=== PATIENT | male | born 1960 | race Caucasian/White ===

== ENCOUNTER 2018-09-24 09:50 | Inpatient (IN) | payer OTHER ==
[~2018-09-24] VITALS: Ht 180.3 cm; Wt 68.9 kg
--- NOTE | 2018-09-24 14:00 | NUR ---
PT ARRIVED TO ROOM 130 WITH THE LOW HEEL BUILDER AND FLOAT RN. PT ABLE TO TRANSFER HIMSELF FROM THE STRETCHER TO THE BED. PT HAS MINIMAL SHAKINESS NOTED. PT ARRIVED ON 15MLS/HR CARDIZEM GTT. WILL CONTINUE TO CLOSELY MONTIOR.
--- NOTE | 2018-09-24 16:00 | NUR ---
PT ASSESSMENT COMPELTED. PT BREATH SOUNDS CLEAR. BOWEL TONES ACTIVE. NO SKIN ISSUES NOTED AT THIS TIME. PT IS DIRTY, WILL ENCOURAGE A SHOWER ONCE HIS HEART RATE IS BETTER CONTROLLED. PT IS AGREEABLE TO PLAN OF CARE. PER PT HE IS A DAILY SMOKER. NICOTINE PATCH ON LEFT SHOULDER. PT REPORTS HE DRINKS BEER DAILY AND OCCASIONALLY HAS WHISKEY,VODAK, OR OTHER ALCOHOL. PT SMOKES MARIJUANA DAILY. PT IS ALERT AND ORIENTED AT THIS TIME AND AGREEABLE TO PLAN OF CARE. WILL CONTINUE TO CLOSELY MONITOR.
--- NOTE | 2018-09-24 17:00 | NUR ---
CARDIZEM GTT TITRATED DOWN TO 10MLS/HR. PT HR IN THE 80'S.
--- NOTE | 2018-09-24 17:15 | NUR ---
TITRATED CARDIZEM GTT DOWN TO 5MLS/HR. HR REMAINS IN THE 80'S.
--- NOTE | 2018-09-24 17:30 | NUR ---
PT HEART RATE IN THE 60'S. TURNED CARDIZEM GTT OFF AT THIS TIME. WILL CONTINUE TO CLOSELY MONITOR.
--- NOTE | 2018-09-24 18:11 | NUR ---
PT RESTING IN BED. ECHO COMPLETED. PT HAS BEEN APPROPRIATE SINCE ADMISSION. DINNER FINISHED. PT ATE 100% OF HIS MEAL. MAGNESIUM INFUSING AT THIS TIME. CARDIZEM GTT REMAINS TURNED OFF. WILL CONTINUE TO CLOSELY MONITOR.
--- NOTE | 2018-09-24 19:51 | NUR ---
REPORT RECEIVED, PT RESTING IN BED, AWAKE, ALERT, PLEASANT, HR 81, BP 113/66, O2 SAT 94% ON RA, RR 22, NO REQUESTS AT THIS TIME, PT EDUCATED ON USE OF CALL LIGHT, PT VERBALIZED UNDERSTANDING, SAFETY, AND FALL PRECAUTION EDUCATION PROVIDED. CALL LIGHT WITHIN REACH.
--- NOTE | 2018-09-24 20:30 | NUR ---
UPDATED DR. ARIZA ABOUT PATIENT'S NEW LAB RESULTS. NO NEW ORDERS REGARDING LABS. ALSO NOTIFIED MD THAT PATIENT STATED TO RN THAT HE HAS NO INTEREST IN QUITTING DRINKING. INQUIRED ABOUT PATIENT RECEIVING BEER WHILE HOSPITALIZED. STATES THAT IF PATIENT BECOMES BELIGERENT AND REQUESTS BEER, IT IS OKAY TO GIVE IT TO HIM, BUT AT THIS TIME DOES NOT WISH PATIENT TO HAVE ALCOHOL DUE TO SCHEDULED AND PRN VALIUM AND LIBRIUM.
--- NOTE | 2018-09-24 20:46 | NUR ---
IN ROOM TO ADMIN SCHEDULED MEDS, PT TOLERATED PO MEDS WELL. HR 81, RYTHM A-FLUTTER, BP 122/77, O2 SAT 98% ON RA, RR 20, PT DENIES ANY PAIN OR DISCOMFORT AT THIS TIME, STATES THAT HE FEELS MUCH BETTER THAN PREVIOUSLY, LS CLEAR, DIMINISHED BASES BILATERALLY, HEART SOUNDS REGULAR, PULSES STRONG, REGULAR, BT ACTIVE, ABD NONTENDER, NO DISTENTION. PERRLA, PT HAS MODERATE TREMOR NOTED IN HANDS AND ARMS, AOX4, IV FLUIDS INFUSING PER EMAR WNL, PT DENIES ANY NEEDS AT THIS TIME, CALL LIGHT WITHIN REACH, FALL PRECAUTIONS IN PLACE.
--- NOTE | 2018-09-24 21:25 | NUR ---
PT ASSISTED FROM BED TO BATHROOM, PT AMBULATED WELL WITH 1 PERSON SBA, PT DENIED ANY LIGHT HEADEDNESS OR DIZZINESS, PT HAD MEDIUM SIZED LOOSE LIQUID STOOL. PT BACK TO BED, VSS, PT STATES "I NEED TO CATCH MY WIND", STATES SOB WITH WALKING IS CHRONIC "USUALLY HAPPENS IN THE MORNING" VITALS REMAIN STABLE, O2 SAT 96% ON RA, RR 26, DENIES FURTHER NEEDS AT THIS TIME, CALL LIGHT WITHIN REACH, FALL PRECAUTIONS IN PLACE.
--- NOTE | 2018-09-24 21:43 | NUR ---
IN ROOM TO ADMIN SCHEDULED VALIUM, 10 MG, PT TOLERATED WELL, EDUCATION REGARDING MEDICATION PROVIDED, PT'S O2 SAT NOTED TO BE 91%, PT PLACED ON 2LNC, TOLERATING WELL, O2 SAT TO 95% NOW RR 23, NO C/O SOB/CP, PT RESTING IN BED, NO FURTHER REQUESTS AT THIS TIME, IV FLUIDS INFUSING PER EMAR WNL, CALL LIGHT WITHIN REACH, FALL PRECAUTIONS IN PLACE.
--- NOTE | 2018-09-24 22:29 | NUR ---
PT RESTING IN BED, O2 SAT 98%, ON 1LNC, RR 24, NO C/O SOB, BREATHS EVEN, UNLABORED, VSS, HR 84, NO REQUESTS AT THIS TIME, CALL LIGHT WITHIN REACH, FALL PRECAUTIONS IN PLACE.
--- NOTE | 2018-09-24 23:45 | NUR ---
IN ROOM FOR SHIFT ASSESSMENT, PT AOX4, APPROPRIATE, PT STATES HE IS TIRED, CIWA 5, PT NOTED TO HAVE MODERATE TREMOR WITH ARMS EXTENDED, NO C/O NAUSEA OR CAZARES, PT NOTED TO BE MILDLY ANXIOUS, PT GIVEN PRN 10 MG PO LIBRIUM PER EMAR, TOLERATED WELL. WILL CONTINUE TO MONITOR, LS CLEAR, HEART SOUNDS REGULAR, VSS, HR 76, BP 125/64, O2 SAT 95% ON 1LNC, RR 26, PULSES STRONG, EQUAL, HEART RYTHM SHOWS AFIB/FLUTTER, NO C/O SOB/CP, IV FLUIDS INFUSING PER EMAR WNL, NO REQUESTS AT THIS TIME, CALL LIGHT WITHIN REACH. FALL PRECAUTIONS IN PLACE.
--- NOTE | 2018-09-25 00:11 | NUR ---
PT RESTING IN BED, EYES CLOSED, BREATHS EVEN, UNLABORED, NO REQUESTS AT THIS TIME, VSS, HR 78, O2 SAT 95% ON 1LNC, RR 23, CALL LIGHT WITHIN REACH. FALL PRECAUTIONS IN PLACE.
--- NOTE | 2018-09-25 00:33 | NUR ---
PT NOTED TO BE IN SINUS RYTHM ON TELE, HR 79, REGULAR, IN 0.19, QRS 0.08, RR 0.77, QT 0.41, PT RESTING IN BED, EYES CLOSED, BREATHS EVEN, UNLABORED, NO REQUESTS AT THIS TIME. O2 SAT 99% ON RA, RR 21, CALL LIGHT WITHIN REACH.
--- NOTE | 2018-09-25 02:18 | NUR ---
IN ROOM TO ADMIN SCHEDULED MEDS, PT TOLERATED WELL. PT AOX4, APPROPRIATE, PT DROWSY FROM REST, ON 1LNC, DENIES SOB, O2 SAT 96%, RR23, HR 86, MODERATE TREMOR NOTED WITH PT'S ARMS EXTENDED, CIWA 4, IV FLUIDS INFUSING PER EMAR WNL, NO REQUESTS AT THIS TIME, PT DENIES NAUSEA, CMS INTACT, DENIES ANY AUDITORY OR SENSORY ABNORMALITIES. FALL PRECAUTIONS IN PLACE.
--- NOTE | 2018-09-25 03:31 | NUR ---
PT RESTING IN BED, EYES CLOSED, BREATHS EVEN, UNLABORED, ON 1LNC, O2 SAT 95%, RR 18, NO REQUESTS AT THIS TIME, CALL LIGHT WITHIN REACH, FALL PRECAUTIONS IN PLACE.
--- NOTE | 2018-09-25 04:24 | NUR ---
PT RESTING IN BED, AOX4, DROWSY FROM SLEEP STATING "I HAVEN'T BEEN SLEEPING WELL" PT HAS MILD TREMOR NOTED IN HANDS, DENIES NAUSEA, DENIES PAIN, DENIES CAZARES, CMS INTACT, NO LOSS OF SENSATION, NO C/O ITCHING. ON 1LNC, O2 SAT 98%, RR 22, DENIES SOB, LS PLEURAL RUB NOTED IN RIGHT LOWER LOBES, LS CLEAR OTHERWISE, PT ENCOURAGED TO COUGH/ DEEP BREATH. HEART SOUNDS REGULAR, CURRENTLY IN SINUS RYTHM, PULSES EQUAL, STRONG, REGULAR. BT ACTIVE, CIWA 3, GIVEN PRN LIBRIUM PER EMAR. PT DENIES NEEDS AT THIS TIME. CALL LIGHT WITHIN REACH, FALL PRECAUTIONS IN PLACE.
--- NOTE | 2018-09-25 06:00 | NUR ---
PT RESTING IN BED, SCHEDULED MEDS GIVEN, NO REQUESTS AT THIS TIME. CIWA 3, IV FLUIDS INFUSING PER EMAR. CALL LIGHT WITHIN REACH. AOX4.
--- NOTE | 2018-09-25 07:30 | NUR ---
REPORT RECIEVED FROM OFFSET PRESSMAN RNS. PT IN BED WITH EYES OPEN. VSS. RR 19. PT INSTRUCTED TO USE CALL LIGHT. VERBALIZED UNDERSTADNING. BREAKFAST ORDERED.
--- NOTE | 2018-09-25 07:35 | NUR ---
REPORT GIVEN TO DAY SHIFT RN'S, QUESTIONS ANSWERED, PT RESTING IN BED, EYES CLOSED, BREATHS EVEN, UNLABORED, HR 79, O2 SAT 97%, ON 1LNC, CALL LIGHT WITHIN REACH, FALL PRECAUTIONS IN PLACE.
--- NOTE | 2018-09-25 08:07 | NUR ---
IN FOR MORNING ASSESSMENT. PT IN BED, AAO X3. VISIBLE TREMORS NOTED, PT IS CALM, LYING BACK. DARION,LLL,RUL CLEAR. RLL WITH NO AUDIBLE LUNG SOUNDS. 02 SAT 97% ON RA. HEART SOUND REGULAR, HR BETWEEN 80-95, SINUS RHYTHM. BLOOD PRESSURE WNL. CIWA OF 4. RIGHT IV FLUSHED WITH 10ML AND PATENT. MEDICAITONS ADMINISTERED.
--- NOTE | 2018-09-25 08:55 | NUR ---
NOTIFIED BY NURSE OF PT INCREASING AGITATION. CIWA OF 8 NOTED. 5 MG IV VALUM ADMINISTERED.
--- NOTE | 2018-09-25 09:05 | NUR ---
CIWA OF 8. 5MG VALUM ADMINISTERED IV. PT EATING BREAKFAST.
--- NOTE | 2018-09-25 09:24 | NUR ---
PT CONTINUES TO BE AGITATED WITH A CIWA OF 8. VISIBLE TREMORS, PT FIGITING WITH CORDS, SITITNG UP, MILD PERSPERATION. SCHEDULE PO VALUM ADMINISTERED.
--- NOTE | 2018-09-25 09:48 | NUR ---
CIWA OF 8. PT REQUESTING TO LEAVE TO SMOKE. SITTING UP WITH VISIBLE TREMORS. FIGITING WITH CORDS. PO LIBRUIM ADMINISTERED. WILL CONT TO MONITOR.
--- NOTE | 2018-09-25 10:30 | NUR ---
ROUNDED WITH DR ARIZA. PT AAO IN BED, WITH SOME VISIBLE AGITATION. REQUESTINGA CIGARETTE. THIS RN LOZENGE REQUESTED. QUESTIONS AND CONCERNS ADRESSED. PT ABLE TO ANSWER QUESTIONS BUT VEERS OFF TOPIC OFTEN. NEEDS REFOCUSED. PLAN OF CARE DISCUSSED.
--- NOTE | 2018-09-25 10:34 | NUR ---
MED REC COMPLETE. PATIENT TAKES NO HOME MEDICATIONS.
--- NOTE | 2018-09-25 11:22 | NUR ---
DR ARIZA UPDATED ON PT INCREASE IN AGITATION AND CIWA SCORE OF 15. NEW ORDERS RECEIVED TO ADMINSTER PRN VALUM IV 10MG. IF IN 15 MIN PT IS STILL AGITATED ADMINISTER ANOTHER DOSE OF VALUM 10MG IV. PT UNRESPONSIVE TO FIRST VALUM DOSE. @ 1140 ANOTHER 10MG VALUM IV ADMINISTERED. PT SITTING UP IN BED WITH VISIBLE TREMORS, RR 30, DECREASE IN DEXTERITY, FIGITING WITH CORDS AND BLANKETS. DENIES HEADACHE. STILL FOLLOWS COMMANDS, REPORTS THAT HE WANTS TO LESAVE TO SMOKE A CIGARETTE. OFFERED LOZENGE, PT REFUSED STATING "ITS NOT THE SAME".
--- NOTE | 2018-09-25 13:11 | EKG ---
[facility] [address] [place], [place] [address] Signed Atrial flutter with 2:[address] \T\ T wave abnormality, consider inferior ischemia Abnormal ECG No previous ECGs available Confirmed by LAILA ARIZA MD [id number]) on 09/25/2018 1:11:26 PM Electronically Signed By: LAILA ARIZA MD 09/25/18 1311 PATIENT NAME: MARTALOVE JOSIE Electrocardiogram DATE OF : 62 PHYSICIAN: LAILA ARIZA MD REPORT #: [id number] REPORT IS CONFIDENTIAL AND NOT TO BE RELEASED WITHOUT AUTHORIZATION
--- NOTE | 2018-09-25 13:12 | NUR ---
DR ARIZA TO FLOOR. UPDATED ON PT INCREASE IN CIWA. NEW ORDERS PLACED. CEREBYX ADMINISTERED PER ORDER.
--- NOTE | 2018-09-25 14:37 | NUR ---
PT WITH CIWA OF 18. 10MG PRN IV VALUM ADMINISTERED.
--- NOTE | 2018-09-25 15:05 | NUR ---
CASE MANAGEMENT ASSESSMENT COMPLETED ON URIAH. PT IS VERY UNKEPT WITH STRONG ODOR. PT SPEAKING LOUDLY AND AT TIMES DOES NOT MAKE SENSE. PT BELIEVES HE HAS BEEN HAVING SEIZURES SINCE APRIL. LIVES ALONE IN A MOTOR HOME, WHICH HAS BEEN PARKED X 4 YEARS A [employer]. 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 PT PLANS ON DC TO MOTOR HOME WITH HELP FROM FRIEND WHEN DISCHARGED.
--- NOTE | 2018-09-25 15:32 | NUR ---
PT TRANSFERED TO ROOM WHERE NURSES CAN VISUALIZE PT BETTER. DR ARIZA TO FLOOR TO ASSESS PT. NEW ORDERS RECEIVED. PT AGITATED AND TRYING TO GET OUT OF BED. WORRIED ABOUT DOG. FRIEND RADHA CALLED ABOUT DOG. PT NOTIFIED AND SEEMS TO BE CALMING DOWN KNOWING HIS DOG IS OK. MEDICATION ADMINISTERED, PT BACK IN BED, REQUESTING TO CALL JOSE. THIS NURSE DIALED NUMBER PT IS UNABLE TO. PT TALKED TO FRIEND ON PHONE.
--- NOTE | 2018-09-25 18:10 | NUR ---
DINNER AT BEDSIDE, 10MG IV VALUM AND PO LIBRIUM ADMINISTERED FOR CIWA OF 4. FAMILY FRIENDS AT BEDSIDE ASSISTIN GPT WITH DINNER. WARM BLANKET PROVIDED.
--- NOTE | 2018-09-25 18:59 | NUR ---
FINISHED 50% DINNER. CIWA OF 4. PRN PO VALUM ADMINISTERED. PT REPORTING HE IS GOING TO "UNHOOK" AND GO SMOKE. NICOTINE LOZENGE GIVEN. PT IN BED WATCHING TV.
--- NOTE | 2018-09-25 22:15 | NUR ---
PATIENT IS RESTLESS, AGITATED, ATTEMPTING TO GET OUT OF BED, STATING "I NEED TO GO TO THE BATHROOM." EDUCATED PATIENT ABOUT MEDICATIONS HE IS ON AND THAT HE CANNOT WALK TO BATHROOM SAFELY, TOLD PATIENT THAT HE CAN USE THE URINAL. THIS CAUSED PATIENT TO BECOME MORE AGITATED AND RESTLESS. SCHEDULED PHENOBARBITAL GIVEN WELL PRN LIBRIUM AND SCHEDULED PO VALIUM. RN REMAINS AT BEDSIDE TO MAINTAIN SAFETY OF PATIENT.
--- NOTE | 2018-09-25 23:00 | NUR ---
PATIENT AGITATED AND RESTLESS, ATTEMPTING TO GET OUT OF BED, IS VERBALLY ABUSIVE TOWARDS STAFF, PRN IV VALIUM GIVEN.
--- NOTE | 2018-09-25 23:40 | NUR ---
PATIENT IS ATTEMPTING TO GET OUT OF BED, RESTLESS, AGITATED, VERBALLY ABUSIVE TOWARDS STAFF. PRN IV VALIUM GIVEN.
--- NOTE | 2018-09-25 23:40 | NUR ---
PATIENT REMAINS AGITATED AND STANDING AT BEDSIDE WITH 3 STAFF ATTEMPTING TO GO TO BATHROOM. 10 MG IV VALIUM GIVEN.
--- NOTE | 2018-09-26 00:40 | NUR ---
NOTIFIED DR. ARIZA THAT PATIENT HAS REMAINED AGITATED AND ATTEMPTING TO GET OUT OF BED DESPITE ALL PRN ORDERS ADMINISTERED WELL WELL X1 DOSE OF 10 MG IV VALIUM. ORDERED FOR X1 LIBRIUM 10 MG PO AND FOR X1 130 MG IV PHENOBARBITAL.
--- NOTE | 2018-09-26 01:00 | NUR ---
PATIENT GIVEN X1 DOSE OF 130 MG IV PHENOBARBITAL AND X1 10 MG PO LIBRIUM. PATIENT ABLE TO TAKE PILLS WELL. REMAINS AGITATED.
--- NOTE | 2018-09-26 02:24 | NUR ---
PATIENT APPEARS TO BE IN SVT WITH HEART RATE >130, BP SBALE WITH PRESSURE OF 128/90 (99), ASLEEP, BREATHING IS EVEN AND UNLABORED. CALLED RT FOR ECG.
--- NOTE | 2018-09-26 02:27 | NUR ---
NOTIFIED DR. ARIZA REGARDING PATIENT'S ELEVATED HEART RATE AND THAT ECG WAS DONE. DR. ARIZA ORDERS FOR CARDIZEM GTT TO BE STARTED AGAIN.
--- NOTE | 2018-09-26 02:30 | NUR ---
PATIENT STARTED ON CARDIZEM GTT AT 5 MG/HR DUE TO ELEVATED HEART RATE. PATIENT IS RESTFUL WITH EYES CLOSED, RR IS EVEN AND UNLABORED, SPO2 94% ON ROOM AIR.
--- NOTE | 2018-09-26 04:30 | NUR ---
PATIENT HAS BEEN AGITATED AND ANXIOUS, ATTEMPTING TO GET OUT OF BED, PULLING AT CHORDS AND LINES. PRN VALIUM GIVEN. RN REMAINS AT BEDSIDE
--- NOTE | 2018-09-26 06:00 | NUR ---
PATIENT IS RESTFUL WITH EYES CLOSED, BREATHING IS EVEN AND UNLABORED. HEART RATE IS BETWEEN 100 AND 110, CARDIZEM GTT AT 15 MG/HR.
--- NOTE | 2018-09-26 06:30 | NUR ---
PATIENT IS RESISTANT TO RN CARE AND IS ATTEMPTING TO GET OUT OF BED. IS VERBALLY AGGRESIVE TOWARDS STAFF. SCHEDULED PHENOBARBITAL GIVEN.
--- NOTE | 2018-09-26 07:50 | EKG ---
[facility] [address] [place] [address] \T\ T wave abnormality, consider inferior ischemia ST \T\ T wave abnormality, consider anterolateral ischemia Abnormal ECG When compared with ECG of 24-SEP-2018 10:29, Current undetermined rhythm precludes rhythm comparison, needs review ST no longer elevated in Inferior leads ST no longer elevated in Anterior leads T wave inversion now evident in Anterolateral leads Confirmed by LAILA ARIZA MD ([id number]) on 09/26/2018 7:50:03 AM Electronically Signed By: LAILA ARIZA MD 09/26/18 0750 PATIENT NAME: LOVE LOZANO Electrocardiogram DATE OF : 62 PHYSICIAN: LAILA ARIZA MD REPORT #: [id number] REPORT IS CONFIDENTIAL AND NOT TO BE RELEASED WITHOUT AUTHORIZATION
--- NOTE | 2018-09-26 08:00 | NUR ---
PT APPEARS TO BE SLEEPING. CHEST RISE AND FALL. DR ARIZA IN UNIT TO CHECK IN ON PT
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
--- NOTE | 2018-09-26 09:16 | NUR ---
DILT GTT TURNED DOWN TO 10 MG/HR
--- NOTE | 2018-09-26 09:30 | NUR ---
PT MEDICATED WITH IV VALIUM PRIOR TO BED CHANGE. COMPLETE BED CHANGE, ATTENDS CHANGED. PT CALM DURING EVENT
--- NOTE | 2018-09-26 10:48 | NUR ---
PT BECOMING MORE AGGITATED. MEDICATED WITHIV VALIUM. FRIEND IN TO SEE PT
--- NOTE | 2018-09-26 11:56 | NUR ---
IV DILT GTT TITRATED DOWN TO 7.5 MG/HR
--- NOTE | 2018-09-26 12:20 | NUR ---
PT UP TO BEDSIDE COMMODE FOR BOWEL MOVEMENT. PT UNABLE TO STAND ON OWN. HEAVY 2 PERSON ASSIST. PT BEGINNING TO BECOME AGRESSIVE WITH STAFF. MEDICATED WITH IV VALIUM
--- NOTE | 2018-09-26 12:55 | NUR ---
PT APPEARS TO BE SLEEPING. MONITOR IN PLACE. CHEST RISE AND FALL VISIBLE.
--- NOTE | 2018-09-26 12:57 | NUR ---
PT FAMILY MEMBER REQUESTED THAT LUNCH BE ORDERED FOR PT. PT REMIANS MUCH TOO DROWSY FOR ORAL INTAKE. WILL ORDER FOOD WHEN APPROPRIATE
--- NOTE | 2018-09-26 13:11 | NUR ---
DR ARIZA UPDATED ON INABLITY TO GIVEN ORAL MEDICATIONS. ASKED IF A BANANA BAG OF IV VITAMINS WOULD BE APPROPRIATE. DR ARIZA DECLINED THAT ORDER AT THIS TIME. IV DILT DRIP CONTINUES AT 5 MG/HR. VITALS STABLE
--- NOTE | 2018-09-26 14:27 | NUR ---
PT CONTINUES TO REST. NO CAHNGES IN STATUS. VITALS STABLE
--- NOTE | 2018-09-26 14:57 | NUR ---
PT ATTENDS CHANGED AFTER SATURATING WITH URINE. PT AWAKE AND SPEAKING TO STAFF. PT REMAINS VERY CONFUSED WITH FLIGHT OF IDEAS. PT ABLE TO SWALLOW ORAL MEDICATIONS IN PUDDING. PT ABLE TO TOLERATE SMALL SIPS OF WATER WITH OUT THE STRAW
--- NOTE | 2018-09-26 15:03 | NUR ---
WHILE PT AWAKE AND MORE AGGITATED. DRIP NEEDED TITRATED BACK UP TO 7.5 MG/HR
--- NOTE | 2018-09-26 15:21 | NUR ---
ATTEMPTED TO FEED PT LUNCH. PT ABLE TO WAKE AND FOLLOW COMMANDS. THOUGH IS VERY DROWSY AND NOT ABLE TO EAT WELL. WILL TRY AGAIN LATER
--- NOTE | 2018-09-26 16:30 | NUR ---
PTS BROTHER IN ROOM TO VISIT. PT DID RECOGNIZE BROTHER ON ENTRY INTO ROOM. DILTIAZEM DRIP TURNED DOWN TO 5 MG/HR
--- NOTE | 2018-09-26 16:55 | NUR ---
PT ATTEMPTING TO TALK HIS BROTHER INTO TAKING HIM HOME. PT MUCH MORE INTERACTIVE WITH STAFF AND FAMILY.
--- NOTE | 2018-09-26 17:18 | NUR ---
PT IN DIRECT LINE OF SIGHT OF NURSES STATION. PT ATTEMPTING TO GET OUT OF BED, BED ALARM ON. REDIRECTING PT FREQUENTLY.
--- NOTE | 2018-09-26 17:48 | NUR ---
DR ARIZA UPDATED ON PTS STATUS. PT HAS INCREASED WORK OF BREATHING, REPORTS "I CAN'T BREATHE" WHEN HE IS COHERENT, AND TACHYNIC. ORDER FOR EXTRA DOSE OF PO LIBRIUM. PT ABLE TO SWALLOW THIS. NO FURTHER ORDERS. PT IS EXTREMELY AGGITATED, ATTEMPTINOG TO GET OUT OF BED TO GET [facility]IG[facility]. PT IN DIRECT LINE OF SIGHT WITH BED ALARM ON.
--- NOTE | 2018-09-26 18:06 | NUR ---
PHARMACIST IN UNIT TO DISCUSS MEDICATION DOSES. DUE TO LIMITED STOCK OF VALIUM, DR ARIZA CONTACTED FOR CHANGE IN MEDICATION TO ATIVAN. ORDER FOR 2 MG IV Q1HR PRN
--- NOTE | 2018-09-26 18:11 | NUR ---
WITH INCREASED AGGITATION, PTS HEART RATE HAS TRENDED UP. NOW 121. DILT GTT TITRATED UP TO 7.5 MG/HR
--- NOTE | 2018-09-26 18:42 | NUR ---
PT IN BED. CONTINUES TO FIGHT TO TRY TO GET OUT OF BED. PT APPEARS TO BE EXTREMELY CONFUSED. PT UNABLE TO PULL HIMSELF UP OUT OF THE BED AT THIS TIME. REMAINS IN DIRECT LINE OF SIGHT. BED ALARM ON
--- NOTE | 2018-09-26 19:10 | NUR ---
BEDSIDE SHIFT REPORT RECEIVED FROM CIPRIANO RANDLE. PT IS IN BED, 2 NEW IV SITES PLACED IN BILATERAL LOWER LEGS. PT'S SPEECH IS SOMEWHAT GARBLED, HE IS CONFUSED/MEDICATED. HE ATTEMPTS TO SIT UP AND EXIT THE BED, BUT IS TOO WEAK, HE STATES HE NEEDS TO GO TO THE STORE TO BUY CIGARETTES, REMINDED PT THAT HE IS IN THE HOSPITAL AND THAT HE NEEDS TO LAY BACK AND REST. PT IN VIEW OF NURSES' STATION, WILL CONTINUE TO CLOSELY MONITOR.
--- NOTE | 2018-09-26 19:13 | NUR ---
PT IV TO RFA INFILTRATED. NEW IV SITES TO BILATERAL LOWER EXTREMITIES. REPORT TO MATIAS
--- NOTE | 2018-09-26 19:45 | NUR ---
PT AGITATION IS INCREASING, 2MG IV ATIVAN ADMINISTERED. PT ABLE TO TAKE PO CARDIZEM WITH PUDDING, NO COUGHING NOTED. IV SITES FLUSHED, SITES IN LEFT ARM ARE TENDER WHEN FLUSHED, CARDIZEM SWITCHED SITES TO RIGHT LOWER LEG, IVF INFUSING THROUGH LEFT LOWER LEG. ALL SITES FLUSH WITHOUT RESISTANCE, DRESSINGS INTACT. ATTENDS DRY AT THIS TIME.
--- NOTE | 2018-09-26 20:37 | NUR ---
ASSESSMENT COMPLETED. PT DROWSY, MEDICATED, FIGETING WITH BLANKETS. ABLE TO SOMEWHAT FOLLOW DIRECTIONS. DOES NOT APPEAR TO BE IN ANY PAIN. LUNGS SLIGHTLY COARSE, RA. HR IRREGULAR, DILATIZEM GTT IN PLACE AT 7.5MG/HR. BOWEL TONES ACTIVE. ATTENDS DRY. SKIN GROSSLY INTACT, IV SITES APPEAR WNL. PT IN VIEW OF NURSES' STATION, WILL CONTINUE TO CLOSELY MONITOR.
--- NOTE | 2018-09-26 21:05 | NUR ---
PT SLEEPING SOUNDLY AT THIS TIME, RR:27, RESPIRATIONS EVEN AND UNLABORED. BED IN LOWEST POSITION, PT IN VIEW OF NURSES' STATION.
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
--- NOTE | 2018-09-26 23:06 | NUR ---
PT REMAINS RESTLESS AND AGITATED, ATTEMPTS TO EXIT THE BED, BUT IS TOO WEAK. PRN ATIVAN ADMINISTERED AT THIS TIME.
--- NOTE | 2018-09-27 | NUR ---
PT INCONTINENT OF LARGE AMOUNT OF URINE, NEW BED LINENS, NEW ATTENDS AND CHUX. PT RESISTS BEING TURNED, AGITATION INCREASED WITH STIMULATION, PRN ATIVAN ADMINISTERED. ASSESSMENT COMPLETED, NO CHANGES FROM PREVIOUS ASSESSMENT. LUNGS REMAIN SOMEWHAT COARSE, RA. HR IRREGULAR. BOWEL TONES ACTIVE. IV SITES APPEAR WNL. BED ALARM REMAINS ON FOR SAFETY.
--- NOTE | 2018-09-27 02:04 | NUR ---
PT APPEARS TO BE RESTING COMFORTABLY, NO APPARENT DISTRESS. RESPIRATIONS ARE EVEN AND UNLABORED, RR:24, HR:85.
--- NOTE | 2018-09-27 03:10 | NUR ---
PT STARTING TO BECOME AGITATED, RESTLESS IN BED. PRN ATIVAN ADMINISTERED. RR:24, RESPIRATIONS EVEN AND UNLABORED.
--- NOTE | 2018-09-27 04:22 | NUR ---
PT SLEEPING, NO APPARENT DISTRESS. RESPIRATIONS EVEN AND UNLABORED, RR:22, SPO2:99% ON RA, HR:91. CARDIZEM DRIP CONTINUES AT 7.5MG/HR. HR IRREGULAR. LUNGS REMAIN SOMEWHAT COARSE. BOWEL TONES ACTIVE. IV SITES INTACT. BED ALARM REMAINS ON FOR SAFETY. WILL ALLOW FOR REST AND CONTINUE TO MONITOR.
--- NOTE | 2018-09-27 06:10 | NUR ---
PT BECOMING MORE AGITATED AND RESTLESS IN BED, SCHEDULED PHENOBARBITAL ADMINISTERED. PT UNABLE TO TAKE ORAL MEDICATIONS AT THIS TIME, PO VALIUM HELD.
--- NOTE | 2018-09-27 07:33 | NUR ---
PTS ATTENDS CHANGED. PT TOLERATED WELL. APPEARS TO GO BACK TO SLEEP AFTER CHANGING.
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
--- NOTE | 2018-09-27 08:22 | NUR ---
PT BEGINNING TO MOAN AND ROLL AROUND BED. CIWA SCORE INCREASING. MEDICATED WITH 2 MG IV ATIVAN
--- NOTE | 2018-09-27 08:22 | NUR ---
DILT DRIP TITRATED DOWN TO 5 MG/HR
--- NOTE | 2018-09-27 09:12 | NUR ---
PT BEGINNING TO SEEM MORE AGGITATED. MOANING MORE AND PULLING OFF MONITOR CORDS. MEDICATED WITH 2 MG IV ATIVAN
--- NOTE | 2018-09-27 10:06 | NUR ---
PTS SISTER CALLED TO CHECK ON PT.
--- NOTE | 2018-09-27 10:35 | NUR ---
PT CONTINUES TO PULL OF SAT MONITOR LEAD. WHEN REAPPLIED, PT HAS BEEN IN HIGH 90%S ON ROOM AIR
--- NOTE | 2018-09-27 10:43 | NUR ---
PT CONTINUES TO MOAN AND ROLL AROUND IN BED. PT STATES OVER AND OVER, "IT HURTS" MEDICATED WITH 2 MG IV ATIVAN TO HELP RELAX
--- NOTE | 2018-09-27 11:10 | NUR ---
DILTIAZEM GTT TURNED BACK UP TO 7.5 MG/HR DUE TO INCREASE IN BLOOD PRESSURE. PT REMAINS IN SINUS RHYTHM, THOUGH UNABLE TO TAKE ORAL MEDICATIONS.
--- NOTE | 2018-09-27 11:24 | NUR ---
PT CONTINUES IN BED WITH EYES CLOSED. PT IS CONTINUOUSLY MOANING. PT BECOMES EXTREMELY AGGITATED WITH ANY TOUGH OR MOVEMENT AT ALL. IV DILTIAZEM DRIP AGAIN TITRATED UP TO 10MG/HR DUE TO BLOOD PRESSURE OF 151/100. HEART RATE 98
--- NOTE | 2018-09-27 12:01 | NUR ---
PT CONTINUES TO REST IN BED. CONTINUES TO MOAN, SPEECH SEEMS TO BE MORE UNDERSTANDABLE AT TIMES.
--- NOTE | 2018-09-27 12:19 | NUR ---
PT OPENS EYES TO NURSE IN ROOM. CONTINUES TO GROWN AND MOAN. PT STATES "I GOTTA GET OUT." APPEARS AGGITATED. MEDICATED WITH 2 MG IV ATIVAN
--- NOTE | 2018-09-27 13:50 | NUR ---
PT IN BED. LINENS AND ATTENDS CHANGED. PT REMAINS VERY DROWSY DUE TOP MEDICATED STATUS. DILTIAZEM DRIP RUNNING AT 10 MG/HR PT TOLERATING WELL.
--- NOTE | 2018-09-27 13:51 | NUR ---
THIS LIFE ASSURANCE REPRESENTATIVE AND RN RAZIA ASSISTED TO CHANGE PATIENTS ATTENDS AND LINENS. THIS LIFE ASSURANCE REPRESENTATIVE PERFORMED PERICARE AND SKINCARE. PATIENT REPOSITIONED IN BED, CALL BUTTON IN REACH. NO OTHER NEEDS AT THIS TIME.
--- NOTE | 2018-09-27 14:38 | NUR ---
PT RESTING. APPEARS COMFORTABLE AT THIS TIME. BED ALARM ON
--- NOTE | 2018-09-27 14:46 | NUR ---
UPDATED DR ARIZA ON CURRENT STATUS AND PTS BLOOD PRESSURE TREND. DR ARIZA OKAY WITH KEEPING PT ON DILT GTT FOR CONTROL FOR NOW.
--- NOTE | 2018-09-27 16:23 | NUR ---
PT SLEEPING. APPEARS COMFORTABLE. RESTIRATIONS EVEN. PT APPEARS TO HAVE SPUTUM IN CHILD AND ON MOUTH THAT HE MAY HAVE COUGHED UP. CLEANED UP WITH WASHCLOTH.
--- NOTE | 2018-09-27 16:36 | NUR ---
PTS LUNGS SOUND CLEAR ON INSPIRATION. COARSE ON EXPIRATION. HOWEVER, PT IS MOANING SLIGHTLY DURING EXAM
--- NOTE | 2018-09-27 18:13 | NUR ---
PT CONTINUES RESTING QUIETLY. NO APPARENT DISTRESS
--- NOTE | 2018-09-27 18:25 | NUR ---
PTS ATTENDS CHANGED. PT IS SOMULENT WHILE IN ROOM. HOWEVER, HE DOES BEGIN TO MOAN AND SPEAK TO NURSE WHILE TURNING TO SIDE FOR ATTENDS CHANGE. PT WARM TO TOUCH, TEMP 98.9, LEFT WITH ONLY SHEET ON FOR NOW.
--- NOTE | 2018-09-27 18:25 | NUR ---
THIS BROOM WORKER ASSISTED CIPRIANO RANDLE TO CHANGE PATIENT'S ATTENDS. PERICARE AND SKINCARE PERFORMED BY CIPRIANO RANDLE. PATIENT REPOSITIONED IN BED, CALL LIGHT IN REACH, BED ALARM ON, NO OTHER NEEDS AT THIS TIME.
--- NOTE | 2018-09-27 19:21 | NUR ---
REPORT GIVEN TO MATIAS
--- NOTE | 2018-09-27 19:45 | NUR ---
SHIFT REPORT WAS RECEIVED FROM CIPRIANO RANDLE. PT CURRENTLY IN BED, BECOMING INCREASINGLY RESTLESS, PRN ATIVAN ADMINISTERED. ASSESSMENT COMPLETED, HE IS DROWSY. LUNGS COARSE, RA. HR REGULAR, CARDIZEM GTT INFUSING AT 10MG/HR. BOWEL TONES ACTIVE. SKIN GROSSLY INTACT, BRUISES SCATTERED. IV SITES PATENT, DRESSING INTACT. BED ALARM ON FOR SAFETY.
--- NOTE | 2018-09-27 21:30 | NUR ---
PT BECOMING INCREASINGLY RESTLESS/AGITATED, FIGETING IN BED AND GROANING. SCHEDULED PHENOBARBITAL ADMINISTERED.
--- NOTE | 2018-09-27 22:25 | NUR ---
PT INCONTINENT OF URINE, NEW ATTENDS AND PERICARE PROVIDED. PT APPEARS RESTFUL, RESPIRATIONS EVEN AND UNLABORED, RR:28, SPO2: 96% ON RA.
--- NOTE | 2018-09-28 01:15 | NUR ---
INCONTINENT OF URINE AND SMALL AMOUNT OF SOFT STOOL, PERICARE PROVIDED, NEW ATTENDS AND CHUX IN PLACE. ASSESSMENT COMPLETED, PT IS SOMNOLENT, MOANS WHEN MOVED IN BED, OTHERWISE NO CHANGES FROM PREVIOUS ASSESSMENT. CARDIZEM GTT CONTINUES AT 10MG/HR. IV SITES APPEAR WNL. PT POSITIONED ON HIS RIGHT SIDE WITH PILLOW SUPPORT. ORAL SUCTIONING PROVIDED, SPUTUM CLEANED OFF OF MOUTH/CHILD. BED ALARM ON FOR SAFETY.
--- NOTE | 2018-09-28 03:20 | NUR ---
PT SLEEPING, NO APPARENT DISTRESS. RESPIRATIONS EVEN AND UNLABORED, RR:25, SPO2: 94% ON RA, HR:98. CARDIZEM DRIP CONTINUES AT 10MG/HR. WILL ALLOW FOR REST AND CONTINUE TO MONITOR.
--- NOTE | 2018-09-28 04:15 | NUR ---
PT INCONTINENT OF URINE, NEW ATTENDS, CHUX, AND PERICARE PROVIDED. ASSESSMENT COMPLETED. PT REMAINS SOMNOLENT, NO CHANGES FROM PREVIOUS ASSESSMENT. IV SITES TO LEFT FOREARM AND AC D/C'D, CATHETER TIPS INTACT, PT TOLERATED WELL. CARDIZEM DRIP CONTINUES AT 10MG/HR.
--- NOTE | 2018-09-28 06:01 | NUR ---
1L O2 VIA NC PLACED ON PT DUE TO DESATURATIONS DOWN TO 84% AND MAINTAINING 85-88%. PT NOW AT 95%. RESPIRATIONS REMAIN EVEN AND UNLABORED, RR:24. PT HAS LOOSE PRODUCTIVE COUGH, ORAL SUCTIONING PROVIDED. PT REMAINS SOMNOLENT, OCCASIONALLY MOANS, ESPECIALLY WHEN REPOSITIONED. HOLDING SCHEDULED PHENOBARBITAL AT THIS TIME, WILL CONTINUE TO ASSESS.
--- NOTE | 2018-09-28 06:26 | NUR ---
OXYGEN TITRATED TO 2L VIA NC FOR SPO2:88-89%. SPO2 NOW 90%, WILL CONTINUE TO MONITOR. ATTENDS CHECKED AT THIS TIME, CURRENTLY DRY. REMOVED PILLOW FROM UNDER RIGHT SIDE.
--- NOTE | 2018-09-28 06:36 | NUR ---
OXYGEN SWITCHED TO OXYMASK AND TITRATED UP TO 4L. SPO2 CAME UP TO 97%. PT DOES NOT RESPOND TO NOXIOUS STIMULI. DR. ARIZA CALLED AND UPDATED, ORDERS RECEIVED FOR CHEST X-RAY. IMAGING NOTIFIED.
--- NOTE | 2018-09-28 06:46 | NUR ---
IMAGING IN ROOM AT THIS TIME.
--- NOTE | 2018-09-28 07:04 | NUR ---
R.Laura. IN TO OBTAIN ABG AT THIS TIME.
--- NOTE | 2018-09-28 07:54 | NUR ---
SUCTIONED PATIENT, AND STERNAL RUB PATIENT NOT RESPONDING. APPEARS TO BE USING ACCESSORY MUSCLES WITH BREATHING, RR 27 OXYGEN SATURATION 90% ON 4L OXIMASK, TITRATED 02 5L. DISCUSSED CPAP WITH DR. ARIZA, AT THIS TIME WILL MONITOR FOR SEDATION TO WEAR OFF. NEW ORDER TO PLACE LY CATH.
--- NOTE | 2018-09-28 08:59 | NUR ---
PROVIDING PATIENT WITH FREQUENT SUCTIONING. THICK WHITE COPIOUS AMOUNTS OF SPUTUM. PATIENT OPENING EYES WITH TURNING. MED LOOSE BM. SKIN INTACT. LY CATH INSERTED, TOLERATED WELL. 400 ML DARK ORANGE URINE. PLAN FOR PATIENT TO GO BY STRETCHER TO CT.
--- NOTE | 2018-09-28 09:55 | NUR ---
PATIENT TO CT WITH THIS NURSE ACCOMPANYING/ASSIST. PATIENT MOANED WITH TRANSFER FOR CT, AND MUMBLED STOP. PATIENT TOLERATED IMAGING WELL. BACK TO ROOM. WILL OPEN EYES TO STERNUM RUB.
--- NOTE | 2018-09-28 11:16 | NUR ---
RT SET UP BIPAP. MONITORING FOR LEAK, AND READJUSTING. PATIENT APPEARS TO BE TOLERATING WELL. RR DECREASED FROM 28 TO 20 AND PATIENT APPEARS TO BE USING LESS ACCESSORY MUSCLES, WOB IMPROVED. SATURATION 98%.
--- NOTE | 2018-09-28 12:17 | NUR ---
PATIENT CT RESULTS AVAILABLE TO VIEW. DR. MATIAS NOTIFIED. PATIENT APPEARS TO BE TOLERATING CPAP WELL, NOT RESPONDING TO STIMULANT, OBTUNDED. VS STABLE. GOOD URINE OUTPUT.
--- NOTE | 2018-09-28 12:30 | NUR ---
TITRATED CARDIZEM DRIP TO 5MG/HR. TURNED TO RIGHT SIDE. PROVIDED ORAL CARE. SUCTIONED, NOTED LESS AMOUNTS OF SECRETIONS.
--- NOTE | 2018-09-28 14:22 | NUR ---
PATIENT REPOSITIONED TO LEFT SIDE. MOANS WITH STERNAL RUB. VS STABLE.
--- NOTE | 2018-09-28 15:26 | NUR ---
PATIENT MOANING. DR. ARIZA ROUNDING. VS STABLE.
--- NOTE | 2018-09-28 18:40 | NUR ---
REPOSITIONED PATIENT, REMOVED BIPAP. PROVIDED PATIENT WITH ORAL CARE. PATIENT MOANING AND MOVING HEAD BACK AND FORTH. PULSE 106, TITRATED CARDIZEM DRIP TO 15MG/HR.
--- NOTE | 2018-09-28 19:15 | NUR ---
SHIFT REPORT RECEIVED FROM CIPRIANO GUPTA. PT IS CURRENTLY OFF BIPAP. RESTING COMFORTABLY, OCCASIONALLY MOANING. BED ALARM ON FOR SAFETY.
--- NOTE | 2018-09-28 20:06 | NUR ---
ASSESSMENT COMPLETED. PT SOMNOLENT, MOANS. LUNGS CLEAR, DIM ON RIGHT SIDE, RA. HR REGULAR, SLIGHTLY TACHY AT 104, CARDIZEM GTT AT 15MG/HR. BOWEL TONES ACTIVE. LY IN PLACE, PATENT, CONCENTRATED URINE. IV SITES FLUSHED AND PATENT, DRESSINGS INTACT. SKIN APPEARS GROSSLY INTACT. BED ALARM ON FOR SAFETY.
--- NOTE | 2018-09-28 21:53 | NUR ---
JOHN AND CATH CARE PROVIDED. ATTENDS ARE CLEAN, NO STOOL NOTED. PT REPOSITIONED ONTO LEFT SIDE WITH PILLOW SUPPORT, PT MOANS WITH MOVEMENT. ORAL SUCTIONING PROVIDED. BED ALARM REMAINS ON FOR SAFETY.
--- NOTE | 2018-09-28 22:31 | NUR ---
PT PLACED BACK ON BIPAP AT THIS TIME FOR DESATURATION TO 84%. SETTINGS UNCHANGED.
--- NOTE | 2018-09-29 00:15 | NUR ---
ASSESSMENT COMPLETED. PT REMAINS SOMNOLENT, RESPONDS TO NOXIOUS STIMULI. LUNGS CLEAR, DIM ON RIGHT SIDE, BIPAP IN PLACE WITH 30% FIO2 (BIPAP SETTINGS UNCHANGED.) HR REGULAR. BOWEL TONES ACTIVE. PILLOW REMOVED FROM UNDER RIGHT SIDE, PT ON BACK AT THIS TIME. HEEL PROTECTORS PLACED. IV SITES PATENT, DRESSING INTACT. ATTENDS CHECKED, REMAIN CLEAN. LY PATENT, CONCENTRATED URINE. BED ALARM REMAINS ON FOR SAFETY.
--- NOTE | 2018-09-29 02:15 | NUR ---
CARDIZEM DRIP TITRATED TO 10 MG/HR. BP:117/77(85) HR:85.
--- NOTE | 2018-09-29 03:02 | NUR ---
CARDIZEM DRIP TITRATED TO 5MG/HR. BP:119/82(89) HR:81. PT APPEARS TO BE RESTING COMFORTABLY WITH BIPAP IN PLACE.
--- NOTE | 2018-09-29 04:00 | NUR ---
ATTENDS CHANGED AND JOHN-CARE PROVIDED, PT HAD SMEAR OF STOOL. PT MOANS WHILE BEING MOVED, CONTINUES TO MOAN, REPOSITIONED ONTO RIGHT SIDE WITH PILLOW SUPPORT. ASSESSMENT COMPLETED. LUNGS SOUND MORE COARSE SOUNDING ON THE RIGHT SIDE, REMAIN CLEAR ON THE LEFT. NO OTHER CHANGES FROM PREVIOUS ASSESSMENT.
--- NOTE | 2018-09-29 06:18 | NUR ---
PT APPEARS TO BE RESTING COMFORTABLY AT THIS TIME. BIPAP IN PLACE, RR:20, SPO2: 93%, HR:96. CARDIZEM DRIP CONTINUES AT 5MG/HR. BED ALARM ON FOR SAFETY.
--- NOTE | 2018-09-29 07:03 | NUR ---
DR. ARIZA NOTIFIED OF PT'S DECREASING UO. NO NEW ORDERS RECEIVED AT THIS TIME.
--- NOTE | 2018-09-29 07:33 | NUR ---
PATIENT RESTING WITH EYES CLOSED. MOANS TO STERNAL RUB. CPAP IN PLACE, VS STABLE. CARDIZEM DRIP INFUSING @ 5MG/HR. IV SITES INTACT, NO REDNESS. SHIFT REPORT FROM LIYA COTA.
--- NOTE | 2018-09-29 10:07 | NUR ---
PROVIDED PATIENT WITH BED BATH AND LY CARE. PATIENT MOAN AND STATED " HURTS, I HURT". TURNED PATIENT TO RIGHT SIDE, PROVIDED ORAL CARE. SMALL AMOUNTS OF WHITE SECRETIONS SUCTIONED FROM BACK OF THROAT. PATIENT ABLE TO COUGH AND CLEAR THROAT WITH WEAK COUGH. UNABLE TO FOLLOW DIRECTION, NOT MOVING ARMS OR LEGS. NEW ORDERS THIS MORNING FOR ABG, CMP. AND AMMONIA. NEW IV TO LEFT UPPER ARM, 20 G. CPAP BACK ON. SKIN INACT,
--- NOTE | 2018-09-29 10:33 | NUR ---
CALL TO DR. ARIZA TO REPORT PATIENT INCREASED ALERTNESS. EYES OPEN AND MUMBLING WORDS, MOANING AND GRIMACING. DR. ARIZA TO BEDSIDE, DISCUSSED POC. PATIENT MOANING AND JARBLING WORDS. CONTINUE TO MONITOR, ORDERED FOR CPAP OFF. REPORTED TO DR. ARIZA TEARFUL WITH REPOSITONING.
--- NOTE | 2018-09-29 11:03 | NUR ---
REPOSITIONED PATIENT TO BACK, NOW SITTING UP. PATIENT CONTINUES TO MOAN AND GRIMACE, WITH JARBLING WORDS. PROVIDED PATIENT WITH MOIST SWAB. REFUSED TO OPEN TEETH, CLENCHING DOWN.
--- NOTE | 2018-09-29 14:04 | NUR ---
RT AND DR. ARIZA TO ROOM, PATIENT WOB INCREASING. PLAN FOR SCHEDULED NEB TX AND CPAP WITH HUMIDIFICATION. IV THIAMINE ADMINISTERED PATIENT TOLERATED WELL. NOTED BP ELEVATED, 181/99 (115) CARDIZEM DRIP INFUSING 5MG/HR. GOOD URINE OUTPUT.
--- NOTE | 2018-09-29 14:40 | NUR ---
CARDIZEM DRIP TITRATED TO 10MG/HR, P 107, BP 166/100. PATIENT ON CPAP WITH FI02 60%, O2 SATURATION 88% RR 28. PATIENT INCREASED WOB. SHIFTING FEET IN BED AND APPEARS TENSE, FACE PAIN SCALE 7/10. PATIENT MOANING. DR. ARIZA WISHES TO HOLD PAIN MEDICATION UNTIL PATIENT MORE ALERT, PROVIDING REPOSITIONING, AND ORAL CARE.
--- NOTE | 2018-09-29 15:00 | NUR ---
CALLED RT TO ROOM, ASSISTED WITH SUCTIONING, AND ASSESMENT OF INCREASED WOB. DR. ARIZA TO ROOM, OKAYED TO PLACED PATIENT BACK ON CPAP FI02 @ 70% PATIENT RR 30, RT IN ROOM ADJUSTING CPAP. PATIENT APPEARS MOTIONLESS TO CARE, MOANING WITH REPOSITIONING. LUNG SOUNDS COURSE THROUGHOUT. GOOD URINE OUTPUT.
--- NOTE | 2018-09-29 16:40 | NUR ---
CALL TO MARILYN BANERJEE FOR ET SUCTION WITH RT. TRUMPLET PLACED, PATIENT TOLERATED WELL. CPAP FIO2 DECREASED TO 40%. PATIENT ARMS AND LEGS CONTINUE TO BE FLACID.
--- NOTE | 2018-09-29 17:20 | NUR ---
DR. GOMEZ ROUNDED ON PATIENT IN ROOM, NEW ORDERS FOR RIGHT WRIST XRAY, AND OKAY TO KEEP TRUMPET IN WITH CPAP. PLAN FOR HEAD CT IN THE MORNING. PATIENT ON HIGH FLOW OXYGEN, OXYMASK ON, 02 SATURATION 93% RR 29, APPEARS COMFORTABLE WITH FACE RELAXED.
--- NOTE | 2018-09-29 17:57 | NUR ---
[employer] TO ROOM, PORTABLE XRAY TO RIGHT WRIST DONE. PATIENT ON C-PAP FI02 50%, RR 26 AND 02 SATURATION 94%. REPOSITIONED PATIENT IN BED.
--- NOTE | 2018-09-29 19:04 | NUR ---
RECEIVED REPORT. PT IS RESTING WITH EYES CLOSED, ON BIPAP AT THIS TIME.
--- NOTE | 2018-09-29 20:50 | NUR ---
PL LEFT ON 4L OXYMASK AFTER ORAL CARE AND SUCTIONING.
--- NOTE | 2018-09-29 21:02 | NUR ---
IN ROOM TO ASSESS PT AND ADMINISTER MEDICATIONS. CARDIZEM DRIP INCREASED BY 2.5 FOR A TOTAL OF 12.5 MG/HR. ALL NEW TUBING WAS HUNG. NASAL TRUMPT IN PLACE IN LEFT NARE AND NT SUCTIONED WELL ORAL CARE COMPLETE WITH ORAL SUCTION. PERICARE AND CATH CARE PROVIDED. FEET WIPED AND NEW SOCKS IN PLACE. ROM EXERCISES DONE. PT MOANS AT TIMES. PUT PT ON 4 L OXYMASK AT ABOUT 2030 AFTER ORAL CARE. TYLENOL SUP GIVEN FOR TEMP 100.5. PT REPOSITIONED.
--- NOTE | 2018-09-29 22:45 | NUR ---
PT IS BACK ON BIPAP AT THIS TIME. HIS EYES ARE CLOSED AND HE MOANS INTERMITENTLY.
--- NOTE | 2018-09-30 00:29 | NUR ---
IN ROOM TO ASSESS PT AND PROVIDE SUCTION AND ORAL CARE. PT IS MOANING MORE AT THIS TIME. REPOSITIONED PT.
--- NOTE | 2018-09-30 01:06 | NUR ---
PUT PT BACK ON BIPAP.
--- NOTE | 2018-09-30 02:43 | NUR ---
PT IS RESTING WITH EYES CLOSED, RESPIRATIONS ARE EVEN AND NONLABORED ON BIPAP. CALL LIGHT IS WITHIN REACH AND ROOM BY NURSES STATION.
--- NOTE | 2018-09-30 03:05 | NUR ---
PT'S PULSE HAS STAYED IN THE UPPER 90'S SINCE LAST TITRATION OF CARDIZEM AND BP'S HAVE REMAINED ELEVATED. CARDIZEM DRIP INCREASED BY 2.5 TO 15 ML/HR. PT IS RESTING WITH EYES CLOSED RR EVEN AND NONLABORED ON BIPAP.
--- NOTE | 2018-09-30 04:20 | NUR ---
ASSESSMENT COMPLETE AND NEW CARDIZEM BAG HUNG. PT IS RESTING WITH EYES CLOSED, RR RATE IS TACHY ON BIPAP. PT IS NOT MOANING AT THIS TIME, RESTING COMFORTABLY. PULSE AND BP HAVE DECREASED A LITTLE SINCE DRIP RATE INCREASED.
--- NOTE | 2018-09-30 05:18 | NUR ---
PT STARTED THE NIGHT OUT ON 10ML/HR CARDIZEM DRIP. HE WAS TITRATED THROUGH THE NIGHT TO 15ML/HR. HE ALSO HAS D5LR RUNNING AT 125MLS/HR. PT WAS ON BIPAP THROUGH MOST OF THE NIGHT WITH 2 BREAKS. ORAL CARE PROVIDED AND SUCTIONING. HE IS NOT ALERT ENOUGH TO TAKE ANY PO INTAKE. HE MOANS OR MUMBLES FROM TIME TO TIME BUT HAS REMAINED OBTUNDED. HE REQUIRED REPOSITIONING. PT IS DUE TO HAVE CT OF HEAD TODAY.
--- NOTE | 2018-09-30 05:31 | NUR ---
PT IS RESTING WITH EYES CLOSED, RESPIRATIONS EVEN AND NONLABORED ON BIPAP.
--- NOTE | 2018-09-30 06:22 | NUR ---
ORAL CARE AND ORAL SUCTIONING PROVIDED. PT REPOSITIONED ONTO LEFT SIDE WITH PILLOW SUPPORT. BIPAP OFF AT THIS TIME, 4L O2 VIA OXYMASK IN PLACE. PT APPEARS COMFORTABLE. RESPIRATIONS ARE EVEN AND UNLABORED.
--- NOTE | 2018-09-30 07:11 | NUR ---
NT AND ORAL SUCTIONING DONE AT THIS TIME.
--- NOTE | 2018-09-30 07:45 | NUR ---
PT RESTING IN BED AT THIS TIME. PT REMAINS LETHARGIC AND OBTUNDED AT TIMES. PT IS NOTED TO BE MOANING AND MUMBLING MORE THIS AM THAN YESTERDAY. PT IS ON THE OXYMASK AT THIS TIME AND TOLERATING WELL. WILL PLACE BACK ON BIPAP NEEDED. ASSESSMENT COMPLETED. BREATH SOUNDS ARE COARSE THROUGHOUT. BOWEL TONES HYPOACTIVE. NICOTINE PATCH PLACED ON LEFT CHEST. WILL CONTINUE TO CLOSELY MONITOR.
--- NOTE | 2018-09-30 09:30 | NUR ---
THIS RN IN TO SUCTION PATIENT D/T GURGLING SOUNDS. SOME THICK SECRETIONS NOTED. CALLED RT TO DO NT SUCTIONING D/T SOME GURGLING STILL NOTED. PT IS MOANING AT THIS TIME, BUT STILL UNABLE TO COMMUNICATE WITH STAFF. WILL CONTINUE TO CLOSELY MONITOR.
--- NOTE | 2018-09-30 09:42 | NUR ---
THIS MEDICAL SONOGRAPHER ASSISTED RN TO REPOSITION PATIENT IN BED. PILLOWS PLACED IN PRESSURE AREAS. RN IN ROOM. NO OTHER NEEDS AT THIS TIME.
--- NOTE | 2018-09-30 10:56 | NUR ---
PT FRIENDS IN TO SEE PATIENT. PER MD GAVE PRN TORADOL. PT CONTINUES TO MOAN SINCE THIS AM AND IS GRIMACING HIS FACE. PT IS UNABLE TO COMMUINICATE WITH STAFF TO TELL STAFF IF HE IS IN PAIN AND WHERE IS HIS PAIN IF SO. WILL MONITOR TO SEE IF IT IMPROVES PATIENTS GRIMACING AND MOANING. PT SUCTIONED BY RT. HOB AT 30 DEGREES. WILL CONTINUE TO CLOSELY MONITOR.
--- NOTE | 2018-09-30 11:12 | NUR ---
PT RESTING WELL NOW AT THIS TIME. PT IS NO LONGER MOANING OR CRYING AND APPEARS COMFORTABLE.
--- NOTE | 2018-09-30 11:50 | NUR ---
PT CARDIZEM GTT TURNED DOWN TO 10ML/HR D/T PATIENTS HR IN THE 79'S. WILL CONTINUE TO CLOSELY MONITOR.
--- NOTE | 2018-09-30 12:30 | NUR ---
IN TO CHECK ON PATIENT. PATIENT IS DOING WELL AT THIS TIME. PT SEEMS TO BE MUCH MORE COMFORTABLE SINCE TORADOL EARLIER. WILL CONTINUE TO CLOSELY MONITOR.
--- NOTE | 2018-09-30 14:45 | NUR ---
PT WENT TO CT WITH THIS RN AT BEDSIDE. PT TOELRATED WELL. PT WAS RESTLESS AND MOANING AT TIMES. PT BROUGHT BACK TO HIS ROOM AND REPOSITIONED. PT NOW RESTING COMFORTABLY. WILL CONTINUE TO CLOSELY MONITOR.
--- NOTE | 2018-09-30 15:14 | NUR ---
decreased cardizem gtt at this time due to decreased heart rate in the 80's.
--- NOTE | 2018-09-30 15:45 | NUR ---
PT CARDIZEM GTT STOPPED AT THIS TIME. NO OTHER ISSUES AT THIS TIME. PT IS RESTING WELL. WILL CONTINUE TO CLSOELY MONITOR.
--- NOTE | 2018-09-30 17:10 | NUR ---
UPDATED MD THAT PTS CARDIZEM GTT REMAINS OF AT THIS TIME. PT BP ELEVATED. PER MD NEW ORDER FOR METOPROLOL. PT REMAINS COMFORTABLE AND RESTING. NO MOANING OR GRIMACING NOTED. PT ASSESSMENT REMAINS UNCHANGED FROM PREVIOUS ASSESSMENT. NO SUCTIONING NEEDED AND PT REMAINS ON 3L OXYMASK. NO ACCESORY MUSCLE USE NOTED. WILL CONTINUE TO CLOSELY MONITOR.
--- NOTE | 2018-09-30 17:33 | NUR ---
PT REPOSITIONED WITH PILLOW SUPPORT. RIGHT ARM ELEVATED ON PILLOWS TO HELP WITH EDEMA. PT TOLERATED TURNING WELL. LY EMPTIED. GAVE METOPROLOL PER MD. WILL CONTINUE TO CLOSELY MONITOR.
--- NOTE | 2018-09-30 17:36 | NUR ---
THIS CORPORATION SECRETARY ASSISTED RN TO REPOSITION PATIENT. PATIENT RESTING, EYES CLOSED. NO OTHER NEEDS AT THIS TIME. RN IN ROOM.
--- NOTE | 2018-09-30 19:30 | NUR ---
REPORT RECEIVED, PT RESTING IN BED, EYES CLOSED, BREATHS EVEN, ON 3L VIA OXY MASK, IV FLUIDS INFUSING PER EMAR, NO REQUESTS AT THIS TIME. CALL LIGHT WITHIN REACH, FALL PRECAUTIONS IN PLACE.
--- NOTE | 2018-09-30 19:58 | NUR ---
PT MEDICATED WITH PRN TORADOL FOR 6/10 PAIN VIA FLACC SCALE.
--- NOTE | 2018-09-30 22:00 | NUR ---
PT RESTING IN BED, BREATHS EVEN, UNLABORED, ON 3L OXY MASK, PT ABLE TO OPEN EYES TO COMMAND, PT UNABLE TO VERBALLY COMMUNICATE EFFECTIVELY, OCCASIONAL GROANS, PT'S HEART SOUNDS REGULAR, PULSES STRONG, EQUAL, IN SINUS RYTHM, LS COURSE IN RIGHT LOBES, CLEAR IN LEFT LOBES, BT ACTIVE, ABD SOFT, NONTENDER, PT RESTING IN BED, NO SIGNS OF DISCOMFORT OR AGITATION, IV FLUIDS INFUSING PER EMAR WNL. CALL LIGHT WITHIN REACH, FALL PRECAUTIONS IN PLACE.
--- NOTE | 2018-09-30 22:24 | NUR ---
IN ROOM WITH RT, PT PLACED ON BIPAP FOR SLEEP, PT TOLERATED WELL, NASAL TRUMPET REMOVED PER DR. BANGURA RECENT VERBAL REQUEST TO REMOVE THE NASAL TRUMPET. NO SIGNS OF DISCOMFORT, TOLERATING BIPAP WELL, O2 SAT 97%, RR, 20, HR 90, VSS. CALL LIGHT WITHIN REACH, IV FLUIDS INFUSING PER EMAR WNL, HEEL PROTECTORS ON. FALL PRECAUTIONS IN PLACE.
--- NOTE | 2018-09-30 23:05 | NUR ---
PT REPOSITIONED IN BED, PT RESTING, EYES CLOSED, BREATHS EVEN, ON BIPAP, O2 SAT 99, RR 22, HR 90'S, NO SIGNS OF DISCOMFORT OR AGITATION, CALL LIGHT WITHIN REACH, FALL PRECAUTIONS IN PLACE. IV FLUIDS INFUSING PER EMAR, HEEL PROTECTORS ON, LY CATH DRAINING WNL, URINE OUTPUT QS.
--- NOTE | 2018-10-01 | NUR ---
PT RESTING IN BED, ON BIPAP, FIO2 40%, PT'S O2 SAT >95%, TOLERATING WELL, NO SIGNS OF AGITATION OR DISCOMFORT, PT UNRESPONSIVE TO VERBAL STIMULI, SLIGHT GRIMACE TO PAINFUL STIMULATION, PT'S PUPILS PERRL, IV FLUIDS INFUSING PER EMAR WNL, 2 NEW IV'S STARTED, ONE 22G IN THE LEFT WRIST, ONE 22G IN THE LEFT LOWER LEG, PT TOLERATED WELL, LS COURSE IN RIGHT LOBES, DIMINISHED IN LEFT LOWER LOBES, COURSE IN UPPER LEFT LOBES, HEART SOUNDS REGULAR, BT ACTIVE. PULSES STRONG. NO REQUESTS AT THIS TIME. CALL LIGHT WITHIN REACH. VSS.
--- NOTE | 2018-10-01 01:00 | NUR ---
PT RESTING IN BED, EYES CLOSED, BREATHS EVEN, UNLABORED, ON BIPAP, O2 SAT >95%, VSS, FALL PRECAUTIONS IN PLACE, IV FLUIDS INFUSING PER EMAR WNL.
--- NOTE | 2018-10-01 02:00 | NUR ---
PT RESTING IN BED, EYES CLOSED, BREATHS EVEN, ON BIPAP, FIO2 40%, RR 18, PT REMAINS UNRESPONSIVE TO VERBAL STIMULI, SLIGHT GRIMACE NOTED WITH PAINFUL STIMULATION, IV FLUIDS INFUSING PER EMAR. FALL PRECAUTIONS IN PLACE.
--- NOTE | 2018-10-01 03:00 | NUR ---
PT HAD MODERATE SIZED SOFT/LOOSE STOOL, INCONTINENT, PT CLEANED, BEDDING CHANGED, PT'S BACKSIDE NOTED TO HAVE REDDENED AREA ON BILATERAL BUTTOCKS/SCROTUM, BLANCHABLE, NO OPEN AREAS, PT TURNED/REPOSITIONED, PT REMAINS ON BIPAP, NO SIGNS OF AGITATION OR DISCOMFORT AT THIS TIME, FALL PRECAUTIONS IN PLACE.
--- NOTE | 2018-10-01 03:00 | NUR ---
PT NOTED TO HAVE LOW URINE OUTPUT, PT CURRENTLY ON BIPAP, PT'S TIDAL VOLUME NOTED TO BE FLUCTUATING WELL PT'S RR, PT'S TIDAL VOLUME FLUCTUATING BETWEEN 80'S TO 1400'S, PT'S RR ALSO NOTED TO RANGE FROM 12 TO 24, RT CALLED, PT SUCTIONED, PT'S LS COURSE AND VERY DIMINISHED THROUGHOUT, O2 SAT 100% ON BIPAP WITH FIO2 40%, DR. GOMEZ CONTACTED REGARDING LOW URINE OUTPUT AND RESP. STATUS. NEW ORDER FOR 1000 ML LR BOLUS IV, GIVEN PER EMAR, VSS, FALL PRECAUTIONS IN PLACE.
--- NOTE | 2018-10-01 03:30 | NUR ---
PT NOTED TO BE TREMBLING, GROANING, PT TAKEN OFF OF BIPAP, O2 SAT 95% ON RA, RR 16, PT AWAKE, PARTIALLY FOLLOWING DIRECTIONS, ABLE TO OPEN EYES PER COMMAND, PT ABLE TO COMMUNICATE VERBALLY, SPEECH GARBLED, BUT ABLE TO UNDERSTAND SHORT SENTENCES, PT GIVEN PRN TYLENOL SUPPOSITORY PER EMAR, TOLERATED WELL, EDUCATION PROVIDED REGARDING PAIN CONTROL, PT REMAINS AWAKE, EYES OPEN, OCCASIONALLY GROANING, PUPILS PERRL, PT UNABLE TO FOLLOW DIRECTIONS TO TRACK FINGER, BUT WILL RESPOND VERBALLY. PT ALERT, ORIENTED TO SELF, , AND PLACE. OCCASIONAL WET COUGH NOTED, NONPRODUCTIVE, PT ENCOURAGED TO COUGH/DEEP BREATH. IV FLUIDS INFUSING PER EMAR WNL.
--- NOTE | 2018-10-01 04:00 | NUR ---
PT'S URINE OUTPUT NOTICED TO HAVE INCREASED, 100 MLS IN LY CATH OVER THE LAST HOUR, IV FLUIDS INFUSING PER EMAR, PT REMAINS AWAKE, ALERT TO SELF, PLACE, AND , PT DENIES ANY PAIN AT THIS TIME, PT NOTED TO BE GROGGY, SPEECH REMAINS GARBLED BUT ABLE TO COMMUNICATE SHORT SENTENCES, PT CURRENTLY ON 3L OXY MASK, O2 SAT 96%, RR 18, HR 92, NO REQUESTS AT THIS TIME. CALL LIGHT WITHIN REACH. FALL PRECAUTIONS IN PLACE.
--- NOTE | 2018-10-01 05:30 | NUR ---
PT AWAKE, OCCASIONALLY GROANING TALKING TO SELF, OCCASIONAL NONPRODUCTIVE COUGH NOTED WELL, SPEECH REMAINS GARBLED, PT DROWSY, CONFUSED, ORIENTED TO SELF, , AND PLACE. IV FLUIDS INFUSING PER EMAR WNL, NO SIGNS OF AGITATION OR DISCOMFORT OTHER THAN OCCASIONAL GROAN, PT REPOSITIONED IN BED FOR COMFORT, LY CATH DRAINING WNL, HEEL PROTECTORS ON, ON 3L OXY MASK. FALL PRECAUTIONS IN PLACE.
--- NOTE | 2018-10-01 08:56 | NUR ---
IV SITES INTACT, NO REDNESS OR SWELLING NOTED, FLUIDS AND FLUSHES INFUSE EASILY. PT NOT RESPONDING APPROPRIATLY, HOWEVER DOES MUMBLE OCCASIONALLY, MOANS AT TIMES. PT REPOSITIONED IN BED FOR COMFORT. HOB ELEVATED TO 30 DEGREES.
--- NOTE | 2018-10-01 10:55 | NUR ---
PT GIVEN FULL BED BATH, HAIR SHAMPOOED, LY CATH CARE, JOHN AREA CARE DONE. LINENS CHANGED, CLEAN GOWN IN PLACE. PT MANUEL WELL.
--- NOTE | 2018-10-01 12:08 | NUR ---
PT LAYING IN BED, SHUTTLECOCK FEATHER TRIMMER MENTIONED THAT PT IS NON-VERBAL. WILL FOLLOW NEEDED
--- NOTE | 2018-10-01 14:21 | NUR ---
pt sitting up in bed, able to take a few sips of water and ensure. pt's family is at the bedside at this time trying to visit with him. pt remains confused, is able to make some sense with answers to direct questions. pt occasionally emotional\tearful.
--- NOTE | 2018-10-01 17:11 | NUR ---
NG TUBE PLACED IN LEFT NARE. PT DID NOT MANUEL WELL, MOANED AND ATTEMPTED TO RESIST, PT NOT STRONG ENOUGH TO INHIBIT PLACEMENT. CHEST X-RAY TAKEN, TUBE ADVANCED 3 INCHES, CHEST X-RAY RETAKEN. WAITING FOR RADIOLOGIST TO OK USE FOR FEEDING.
--- NOTE | 2018-10-01 18:37 | NUR ---
pt incontinent of medimum liquid bm. linens changed, tierney care done, pt repositioned to left side with pillows for support. warm blanket given. pt hob elevated to 30 degrees. oral suctioning done, thick secretions removed.
--- NOTE | 2018-10-01 19:29 | NUR ---
pt had extensive skin care today, as well as shampoo of hair. pt appeared to be comfortable for most of the day until ng tube was placed at 1700. pt incontinent of medium liquid stool. pt remains weak and unable to sit up in bed on his own. pt not able to follow commands, remains forgetful and confused. pt had family and a friend at the bedside to visit for approximatly 2 hours this afternoon. pt bp remains elevated, is aware. one time dose of iv morphine given after ng tube placement for pt discomfort. pt repositioned q2 hours all shift.
--- NOTE | 2018-10-01 20:00 | NUR ---
PATIENT IS MOANING IN BED, FLACC SCORE OF 5. REPOSITIONED FOR COMFORT, PILLOWS UNDER LEFT SIDE. BREATHING IS EVEN AND UNLABORED, O2 SATURATION 95% ON ROOM AIR. HEART RATE WNL, BP HIGH WITH SYSTOLIC PRESSURE >170. ALSO NOTED THAT PATIENT HAS TEMPERATURE OF 100.[address] GOMEZ REGARDING PATIENT'S VITALS. NOW THAT NGT IS IN POSITION PER XRAY CONFIRMATION, TUBE FEEDING STARTED AT 400 ML/HR. ALSO SWITCHED PATIENT TO PO METOPROLOL, DC'D IV METOPROLOL AND PO CARDIZEM. TYLENOL NM SWITCHED TO TYLENOL PT. LY INTACT, DRAINING WELL, IVs ALSO INTACT, IVF INFUSING PER ORDER.
--- NOTE | 2018-10-01 21:29 | NUR ---
PATIENT CONTINUES TO MOAN, FLACC SCORE IS 5. PRN TYLENOL AND OXYCODONE GIVEN. NOTED THAT HEART RATE IS BETWEEN 1005 AND 115, BP 163/98 (107), SCHEDULED METOPROLOL GIVEN WELL. PATIENT NOW RESTING IN BED WITH EYES CLOSED, CONTINUES TO MOAN. WILL CONTINUE TO MONITOR
--- NOTE | 2018-10-01 23:44 | NUR ---
PATIENT REPOSITIONED FOR COMFORT, NEW ATTEND PLACED, PATIENT CLEANED. PATIENT WHILE AWAKE MOANS, FLACC SCORE OF 5. COMES IN AND OUT OF SLEEP, APPEARS RESTFUL AND FLACC SCORE 0 WITH EYES CLOSED. NGT INTACT, JEVITY GOING AT 40 ML/HR, IVF INFUSING.
--- NOTE | 2018-10-02 00:30 | NUR ---
PATIENT IS MOANING LOUDLY, FLACC SCORE OF 5. PATIENT DENIES PAIN, DOES NOT ANSWER ANY FURTHER QUESTIONS. REPOSITIONED, COMPLETE BED CHANGE DONE, JOHN CARE ALSO DONE. PATIENT IS NOW RESTING WITH EYES CLOSED, FLACC SCORE OF 0. ATTEMPTED TO DO RESIDUAL FOR NGT, SCANT AMOUNT OF FLUID RETURNED. IVF CONTINUE TO INFUSE, JEVITY GOING AT 40 ML/HR. CALL LIGHT WITHIN REACH.
--- NOTE | 2018-10-02 01:45 | NUR ---
NOTIFIED DR. GOMEZ THAT PATIENT'S URINE OUTPUT HAS DECREASED FOR PAST TWO HOURS. ORDERED 1L LR BOLUS OVER ONE HOUR, IF PATIENT IS NOT RESPONSIVE TO FLUIDS, STATES "HE WILL BE FINE FOR THE REST OF THE NIGHT."
--- NOTE | 2018-10-02 03:20 | NUR ---
PATIENT IS MOANING AND FIDGITING IN BED, FLACC SCORE OF 5. PATIENT REPOSITIONED. NOTED THAT PATIENT IS WET FROM INFILTRATED IV. IV REMOVED AND PATIENT PROVIDED NEW GOWN AND NEW LINENS. PATIENT IS UNABLE TO REPORT AND NEEDS AND CONTINUES TO STATES "I DON'T KNOW WHAT I NEED, ALL I KNOW IS THAT I LIKE WOMEN." NOW THAT PATIENT IS REPOSITIONED, PATIENT NO LONGER MOANING AND EYES NOW CLOSED. CALL LIGHT WITHIN REACH.
--- NOTE | 2018-10-02 04:17 | NUR ---
PATIENT IS RESTFUL WITH EYES CLOSED, BREATHING IS EVEN AND UNLABORED, O2 SATURATION IS 93% ON ROOM AIR. FLACC SCORE OF 0. CALL LIGHT WITHIN REACH.
--- NOTE | 2018-10-02 06:30 | NUR ---
PATIENT REPOSITIONED, PATIENT IS MORE ALERT, ABLE TO COMMUNICATE THAT HE NEEDS TO RBE REPOSITIONED AND IS REQUESTING TO MAKE A PHONE CALL. PATIENT IS NOT AWARE OF SURROUNDINGS OR SITUATION. REORIENTED. PATIENT NOW RESTING WITH EYES CLOSED, BREATHING IS EVEN AND UNLABORED. FLACC SCORE 5 NOTED. PRN OXYCODONE GIVEN PT
--- NOTE | 2018-10-02 08:07 | NUR ---
PT SLEEPING SOUNDLY, MOANS OCCASIONALLY. IV SITE WNL, FLUIDS INFUSING EASILY, PT ONLY HAS ONE IV SITE AT THIS TIME. NG TUBE IN PLACE, JEVITY FORMULA AT 40ML/HR, PT APPEARS TO AMNUEL WELL. PT ONLY ORIENTED TO NAME, GARBLED SPEECH.
--- NOTE | 2018-10-02 10:24 | NUR ---
FEED RATE INCREASED TO 60ML/HR PER CELL BIOLOGY SCIENTIST RECOMMENDATION.
--- NOTE | 2018-10-02 11:36 | NUR ---
PT INCONTINENT OF SMALL LIQUID BM, ALL LINENS CHANGED, JOHN CARE DONE, LY CATH CARE DONE. PT NOT ABLE TO HELP ROLL SELF FROM SIDE TO SIDE. JOHN AREA RED AND EXCORIATED, PT APPEARS PAINFUL WITH JOHN CARES. PT REPOSITIONED UP IN BED, BLANKETS AND PILLOWS GIVEN FOR COMFORT.
--- NOTE | 2018-10-02 12:48 | NUR ---
IV SITE INTACT, NO REDNESS OR SWELLING NOTED, FLUIDS AND FLUSHES INFUSE EASILY. PT DENIES PAIN. NG TUBE IN PLACE, CONTINUIOUS FEED AT 60 ML/HOUR, ACTIVE BT AT THIS TIME. PT MOANS AND GROWLES, HOWEVER WILL ANSWER DIRECT QUESTIONS. SISTER IS AT THE BEDSIDE.
--- NOTE | 2018-10-02 14:32 | NUR ---
200 ML TAP WATER FLUSH TO NG TUBE, PT MANUEL WELL.
--- NOTE | 2018-10-02 15:50 | NUR ---
PT GIVEN ZESTRIL PER TUBE. PT MANUEL WELL. REPOSTIONED IN BED FOR COMFORT, TURNED TO THE RT SIDE SUPPORTED WITH A PILLOW.
--- NOTE | 2018-10-02 16:38 | NUR ---
PT GIVEN 5 MG OXYCODONE PER TUBE FOR PAIN 5/10 GENERALIZED. PT MANUEL WELL, TUBE FEED RUNNING AT 60 ML/HR. ORAL CARE DONE ON PT, NOT MANUEL WELL, PT REPORTS "MY TEETH HURT" GENTLY SWABBED GUMS AND TOUNG. SUCTIONED PT WITH SOFT 14 BRAZILIAN SUCTION TIP IN MOUTH AND BACK OF THE THROAT.
--- NOTE | 2018-10-02 19:02 | NUR ---
pt stated he had to have a bm. pt incotinent of stool, states he still has to go, assisted to bedpan. pt not able to pass any more stool. tierney care done, linens changed, desitin applied to tierney area, groin, and buttocks.
--- NOTE | 2018-10-02 19:20 | NUR ---
PT TRANSFERRED TO ROOM 111 FROM ICU VIA BED. HOB ELEVATED, TUBE FEEDING IN PLACE INFUSING JEVITY AT 60CC/HR. MOANING, DOES NOT ASNWER APPROPRIATELY BUT TURNS HEAD TOWARDS THIS RN VOICE. REPORT GIVEN TO YINKA SKINNER RN FROM ICU RNS.
--- NOTE | 2018-10-02 21:00 | NUR ---
PATIENT GROANS ONCE IN AWHILE OTHERWISE IS UNRESPONSIVE. LY DRAINING. IV INFUSING AND WNL IN RIGHT FIERRO. VS HAVE BEEN STABLE.RIGHT ARM VERY SWOLLEN AND RED. PATIENT NOT REALLY MOVING RIGHT ARM. PROPPED UP ABOVE LEVEL OF HEART ON PILLOWS.
--- NOTE | 2018-10-02 21:32 | NUR ---
CHARGE NURSE ROUNDING NOTE: MOANING, UNABLE TO ANSWER BACK WHEN ASKED. NGT IN PLACE INFUSING JEVITY TUBE FEEDING, F/C IN PLACE.
--- NOTE | 2018-10-02 22:45 | NUR ---
PATIENT STARTED TO TRY AND TALK. PATIENT SAD,"I CAN'T FIND THE SHITTER." PATIENT UNABLE TO STAND AND WAS PLACED ON A BED GONZALEZ AND HAD A MEDIUM FOUL SYRUP LIKE STOOL. ENTIRE JOHN AREA AND BUTTOCKS AREA RED, PAIFUL , AND EXSCORIATED. DESITIN APPLIED. JEVITY NG-TUBE FEEDING RUNNING CONTINOUSLY AT 60MLS AN HOUR WITH ORDERS FOR 200ML FREE WATER FLUSHES WHICH WAS DONE.
--- NOTE | 2018-10-03 01:00 | NUR ---
PATIENT REPOSITIONED TO RIGHT SIDE. PATIENT CONTINUES TO MOAN ALMOST A GROWL. VS HAVE BEE STABLE.
--- NOTE | 2018-10-03 03:00 | NUR ---
PATIENT CONTINUES TO MOAN WITH NO AUDIBLE WORDS, REPOSITIONED TO SUPINE.
--- NOTE | 2018-10-03 05:00 | NUR ---
PATIENT CONTINUES TO MOAN, BUT IT IS INCREASING IN INTENSITY. 10MG CRUSHED OXYCODONE FLUSHED DOWN NG TUBE FOR COMFORT. PATIENT TURNED TO LEFT SIDE.
--- NOTE | 2018-10-03 06:15 | NUR ---
PATIENT HAS HAD A LARGE FOUL SMELLING SYRUPY LIQUID STOOL IN THE BED. BEDDING CHANGED, PATIENT WASHED UP, NEW DESITIN APPLIED, ATTENDS AND NEW CHUCKS IN PLACE. PATIENT TOLERATED WELL WITH THE OXYCODONE ON BOARD FROM JUST BEFORE 5AM. LY STILL DRAING WELL AND IV PATENT, INFUSING, AND WITHIN NORMAL LIMITS.
--- NOTE | 2018-10-03 07:59 | NUR ---
AUDIBLE GURGLING. PT ABLE TO COUGH SECRETIONS BUT SUCTIONING NEEDED FOR BACK OF THROAT. ATTEMPTED WITH SUCTION CATHETER WITHOUT SUCCESS. RT CALLED FOR DEEP SUCTIONING. PT TOLERATED WELL. THICK PINK MUCUS SUCTIONED OUT. ORAL CARE PROVIDED. D51/2NS AT 125ML/HR. JEVITY VIA NG TUBE AT 60ML/HR. BED ALARM IN PLACE. VISIBLE FROM NURSING STATION.
--- NOTE | 2018-10-03 08:34 | NUR ---
got patients weight per nurse order
--- NOTE | 2018-10-03 09:54 | NUR ---
ASSISTED NURSE IN DOING ORAL CARE, SUCTIONING AND REPOSITIONING WELL AN ATTEND CHANGE
--- NOTE | 2018-10-03 10:00 | NUR ---
REPOSITIONED PT. MOUTHCARE AND SUNTIONED PROVIDED.
--- NOTE | 2018-10-03 12:53 | NUR ---
PT WORKED WITH PT. SAT AT SIDE OF BED AND 2PA TRANSFER TO CHAIR FOR BED CHANGE. 2P PIVOT BACK TO BED. PT SL PER MD ORDER. BED ALARM IN PLACE. ATTENDS CHANGED. VISIBLE FROM NURSING STATION. PT ORIENTED TO SELF, PLACE AND CLOSE TO DATE. PT IS ABLE TO FOLLOW COMMANDS BUT VERY SLOW TO RESPOND. GURGLING IN BACK OF THROAT. SUCTION AND MOUTH CARE PROVIDED.
--- NOTE | 2018-10-03 15:33 | NUR ---
PT REPORTED 8/10 THROAT PAIN R/T NG TUBE. PRN TYLENOL ADMINISTERED.
--- NOTE | 2018-10-03 18:03 | NUR ---
PT HAD GOOD DAY. WORTKED WITH PT TODAY.. STOOD AT SIDE OF BED. PT IS MORE AWAKE AND ORIENTED THIS SHIFT. ABLE TO HAVE CONVERSATIONS AND ASK QUESTIONS. PT IS TEARFUL AT TIMES WHEN TALKING ABOUT HIS FRIENDS. NG TUB IN PLACE. FEEDINGS AT 50ML/HR. LR AT 75. CHANGED, REPOSITIONED, AND ORAL CARE DONE Q2H. BED ALARM IN PLACE. BRACE ON RIGHT WRIST. IV CATH IN RLE FLUSHES WELL. Q4H BLOOD SUGAR CHECKS.
--- NOTE | 2018-10-03 18:03 | NUR ---
.PT REPORTING 8/10 PAIN IN THROAT R/T NG TUBE. 5MG OXYCODONE ADMINISTERED PRN.
--- NOTE | 2018-10-03 18:32 | NUR ---
PT WITH RASH TO TORSO IS ITCHING A LOT. DR GOMEZ NOTIFIED. NEW ORDERS RECIEVED.
--- NOTE | 2018-10-03 20:30 | NUR ---
PATIENT HAS BECOME MORE RESTLESS, AND IS MOVING AROUND MORE IN THE BED. LARGE LIQUID MUCOID BROWN/GREEN STOOL INCONTINENT IN THE BED. LINENCHANGED AND PATIENT WASHED UP AND NEW ATENDS IN PLACE.DESITINAPPLED TOVERY RED/EXCORIATED JOHN AREA, INNER THIGHS, AND BUTTOCKS.TUBE FEEDINGS CONTINUE AT 50 MLS AN HOUR.
--- NOTE | 2018-10-03 23:30 | NUR ---
PATIENT HAS HAD ANOTHER LARGE LIQUID BOWEL MOVEMENT AND HAS BEEN CLEANED UP AND ATTTENDS CHANGED. DESITIN APPLIED TO JOHN-AREA AND SCROTAL AREA, AND BUTTOCKS. PMMEDS HAVE BEEN GIVEN AND PATIENT HASAPPEARED TO BE VERY UNCOMFORTABLE AND 10 MG OXYCODONE HAS BEEN GIVEN FOR PAIN CRUSHED AND DOWN NG AND NG CLAMPED FOR AN HOUR.
--- NOTE | 2018-10-03 23:37 | NUR ---
CHARGE NURSE ROUNDING NOTE: PT SEMICOOPERATIVE TO PROCEDURE/CARE. TF L NARE. LEFT NARE WITH CLEAR NASAL DISCHARGE, PT PICKING AT NARES, SCANT AMOUNT OF RE-PINK NASAL DRAINAGE PRESENT L NARE. PT INSTRUCTED NOT TO PICK AT NARES AND REASONG WHY, SEMICOOPERATIVE. HOB ELEVATED TO PREVENT ASPRATION PRECAUTION. INCONTINENT OF SEMI LIQUID BROWN-GREEN COLORED BM, LARGE AMOUNT. RED-IRRITATED JOHN AREA AND BACK OF BUTTOCKS, DESITIN CREAM APPLIED. BED LINEN CHANGED, CLEAN ATTENDS IN PLACE. F/C PATENT. IVF R MID LOWER LEG AREA, PATENT. IVF INFUSING W/O PROBLEMS. HEEL PROTECTORS IN PLACE
--- NOTE | 2018-10-03 23:53 | NUR ---
V/S AND I&O DONE AND CHARTED. FLOAT ZEINAB VIZCAINO AND David CLEANED THE PATIENT, LY CATH CARE AND CHANGED BED LINEN AND GOWN FROM INCONTINENT/BOWEL MOVEMENT. CALL LIGHT AND BEDSIDE TABLE WITHIN REACH. BED ALARM ON.
--- NOTE | 2018-10-04 01:26 | NUR ---
PATIENT HAS HAD ANOTHER LARGE LIQUID BOWEL MOVEMENT, CLEANED UP AGAIN AND LINEN AND ATTENDS CHANGED. PATIENT HAS RESTED BETTER ATER THE OXYCODONE. PATIENT STILL MOANS OR GROWLS AT TIMES.
--- NOTE | 2018-10-04 03:26 | NUR ---
PATIENT HAS HAD ANOTHER LARGE LIQUID STOOL AND LINEN WAS ONCE AGAIN CHANGED AND PATIENT CLEANED UP. BARRIER CREAM APPLIED ANDNEW ATTENDS IN PLACE. TF STILL RUNNING AT 50MLS AN HOUR. IV STILL WNL AND INFUSING.
--- NOTE | 2018-10-04 06:24 | NUR ---
PATIENT RESTING QUIETLY AT THIS TIME AND ATTENDS ARE CURRENTLY DRY. EYES CLOSED RESPIRATIONS REGULAR AND EVEN AT A RATE OF 18. TUBE FEEDING CONTINUES AT 50MLS/HR. LABS WERE JUST DRAWN. IV WNL AND STILL INFUSING.
--- NOTE | 2018-10-04 09:11 | NUR ---
BEDSIDE SWALLOW EVALUATION COMPLETED BY THIS RN. PT WAS ABLE TO SWALLOW 1TSP WITHOUT S/SX OF ASPWERATION O2 SATURATIONS MAINTAINED AT 92% THROUGH EVALUATION. PT ABLE TO SWALLOW 2TSP AND 3 SIPS ALONE WITHOUT ANY GURGLING, COUGHING, OR CHOCKING. HOB WAS ELEVATED TO 45 DEGREES.
--- NOTE | 2018-10-04 09:18 | NUR ---
BEDSIDE REPORT RECEIVED FROM YINKA COTA. ALL QUESTIONS ANSWERED. PATIENT HAS BRIGHT RED EXCORIATED PERINEAL AREA FROM DIARRHEA. DESITIN RECEIVED FROM PHARMACY. LY CATHETER IN PLACE. FLORIN COTA REMOVED NG TUBE PER ORDER. BEDSIDE SWALLOW EVAL COMPLETED WELL. PATIENT TOOK PILLS IN APPLESAUCE AND HAD A BITE OF PUDDING. TOLERATED WELL.
--- NOTE | 2018-10-04 14:52 | NUR ---
cleaned patient's room. put clothes in closet. vanilla shake ordered for patient. spilled part of it on floor. cleaned it up. patient's fine motor skills are lacking at this time. sitting up in recliner now. watching television. linens changed.
--- NOTE | 2018-10-04 17:12 | NUR ---
pt has visitor at bedside now. did have loose bm on bsc. transfers well. attends removed to allow skin to breathe.
--- NOTE | 2018-10-04 17:55 | NUR ---
PATIENT MORE IMPROVED TODAY. LY IN PLACE. NG REMOVED. ADVANCED DIET TO REGULAR. NO ACCU CHECKS. FINE MOTOR SKILL LACKING. NEEDS HELP WITH EATING MEALS. UP TO CHAIR FOR MEALS. 1-2PA FWW TRANSFERS. DIARRHEA. NO ATTENDS ON TO LET SKIN BREATHE. PERINEAL AREA EXCORIATED. DESITIN. LR @ 75. RIGHT WRIST BRACE ON.
--- NOTE | 2018-10-04 21:53 | NUR ---
AWAKE, ANSWERING APPROPRIATELY, IVF INFUSING W/O PROBLEMS. COOP WITH ASSESSMENT. IV R MID LEG. WNL. F/C PATENT. DESITING TO RED SORE JOHN AREA. ASPIRATION PRECAUTIONS IN PLACE. TURNS SELF IN BED
--- NOTE | 2018-10-04 23:15 | NUR ---
INCONTINENT OF BOWEL, SEMI LIQUID, SKIN CARE DONE, CONTINUES TO HAVE VERY IRRITATED, RED PERIA MARIANO . DESITING APPLIED. F/C IN PLACE, INTACT-PATENT.COOPERATIVE. MUCH IMPROVED COGNITION
--- NOTE | 2018-10-04 23:24 | NUR ---
CARRILLO AND I DID CLEAN AND PUT ATTENDS TO PATIENT.
--- NOTE | 2018-10-05 05:17 | NUR ---
Improved cognitions, answering appropriately. Brace to r wrist in place, f/c patent. Redness and excoriation to periarea improving. Desiting to are. Pt continues to be slightly impulsive when getting up, weak gait. semi cooperative with following instructions. ivf infusing r lower leg . no cough, tolerating fluids well. Bed alarm on
--- NOTE | 2018-10-05 05:40 | NUR ---
Improved cognitions, answering appropriately. Brace to r wrist in place, f/c patent. Redness and excoriation to periarea improving. Up to bsc with 2 people assist.Had a large semi liquid bm, green colored. wiped self and he called appropriately using call light. Desiting applied to a much improved reddened excoriated tierney area. cooperative with following instructions. IVF infusing R lower leg . no cough, tolerating fluids well. Bed alarm on
--- NOTE | 2018-10-05 08:45 | NUR ---
PT SITTING UP IN BED EATING BREAKFAST INDEPENDENTLY. PT ALERT AND ORIENTED THIS AM, APPROPRIATE. NOTED THAT PT TOOK THE BRACE OFF OF HIS RIGHT HAND STATES "IT DOESN'T EVEN HURT, I DONT KNOW WHY IT'S EVEN ON." ASSISTED PT TO REAPPLY BRACE. PT DENIES PAIN, NAUSEA, OR OTHER CONCERN. IV INFUSING IN RIGHT LEG WNL, DRESSING CDI. CALL LIGHT WITHIN REACH. BED ALARM ON.
--- NOTE | 2018-10-05 12:06 | NUR ---
SPOKE WTIH PATIENT IN ROOM ABOUT POSSIBLY NEEDING REHAB STAY BEFORE GOING HOME ALONE. HE WANTS TO STAY CLOSE TO [place], AGREES TO SNF STAY AT [facility] IF POSSIBLE. PATIENT LIVES ALONE IN [place]. HAS A FRIEND WHO CAN TAKE HIM HOME, BUT CANNOT STAY WITH HIM. CLINICALS FAXED TO [facility]. FAX CONFIRMATION RECEIVED.
--- NOTE | 2018-10-05 12:10 | NUR ---
PT AMB HALLWAY WITH P.T., 1PA AND FWW. MANUEL WELL. PT DID SITTING EXERCISES AND AMB BACK TO ROOM. CURRENTLY SITTING UP IN RECLINER EATING LUNCH. CHAIR ALARM IN PLACE. CALL LIGHT WITHIN REACH.
--- NOTE | 2018-10-05 12:26 | NUR ---
PATIENT HAS BEEN AWAKE AND . VERY TALKATIVE, tHERPHY WAS IN THE ROOM WITH PATIENT, ATE HIS BREAKFAST AND WAS EATING HIS LUNH. PATIENT IS NOW SETTING UP IN HIS CHAIR. CALL LIGHT IN REACH.
--- NOTE | 2018-10-05 13:18 | NUR ---
ALIYAH SPEARS'Bob PER ORDERS. PT MANUEL WELL. SITTING UP IN RECLINER. ATE APPROX 50% OF LUNCH. STATES "IT TASTES LIKE SHIT." REFUSED OFF TO ORDER SOMETHING ELSE FOR LUNCH. CALL LIGHT WITHIN REACH.
--- NOTE | 2018-10-05 14:40 | NUR ---
PT SHOWERED WITH ASSISTANCE OF [facility] ARRIOLA. LINENS CHANGED. PT SITTING UP IN BED. BED ALARM ON. CALL LIGHT WITHIN REACH.
--- NOTE | 2018-10-05 16:01 | NUR ---
PT SITTING UP IN BED. REMAINS ALERT AND ORIENTED. DENIES NEEDS OR CONCERNS AT THIS TIME. CALL LIGHT WITHIN REACH.
--- NOTE | 2018-10-05 16:33 | NUR ---
CASE MANAGEMENT DR HENRIQUEZ SPOKE WITH PATIENT REGARDING DIAGNOSIS, PROGNOSIS, PLAN OF CARE. PATIENT IS ORIENTED. PATIENT HAS MEMORY LOSS OF WHATS HAPPENED DURING ADMIT. PATIENT ASKED APPROPRIATE QUESTIONS. PATIENT SPOKE OF GOING TO REHAB. PATIENT ASKING WHAT WOULD HAPPEN IF HE HAD NO TREATMENT FOR CANCER. PATIENT ASKING WHAT DOCTOR HE WOULD SEE IF HE GOT TREATMENT. PATIENT WORRIED ABOUT HIS DOGS. STATES HIS FRIEND SHAYY IS TRYING TO FIND OUT WHERE HIS DOGS ARE. HE STATES HE MAY MOVE [place] TO ANOTHER [place]ACE. PATIENT STATES HIS BROTHER IS COMING TO SEE HIM LATER. PATIENT IS UNCLEAR WHAT HE WANTS DONE AT THIS POINT. DISCUSSED WITH PATIENT THE FIRST THING IS TO GET STRONGER FROM THIS ACUTE ILLNESS. THAT HE SHOULD NOT SMOKE OR DRINK ANY ALCOHOL. IT IS STILL HIGHLY RECOMMENDED HE GO TO REHAB AND THEN FOLLOW UP WITH OUTPATIENT APPOINTMENTS FOR THE NEXT PHASE AND PLAN. HE IS IN AGREEMENT WITH THIS. QUESTIONS ANSWERED.
--- NOTE | 2018-10-05 17:51 | NUR ---
PT SITTING AT EDGE OF BED. MAKING MULTIPLE PHONE CALLS. PT STATES "I'M GONNA LEAVE HERE SOON I FIND A PLACE FOR MY DOG TO GO. I'M GONNA SNEAK OUT OF HERE." "I DON'T WANT TO DO ANYMORE MEDICAL. I JUST WANT TO LIVE MY LIFE AND THE WAY I WANNA ." PT TEARFUL. THERAPEUTIC COMMUNICATION INITIATED. PT SITTING AT EDGE OF BED, BED ALARM ON. CALL LIGHT WITHIN REACH. DR. HENRIQUEZ NOTIFIED OF PT WISHES TO LEAVE AND STOP MEDICAL TREATMENT. NO NEW ORDERS MADE AT THIS TIME.
--- NOTE | 2018-10-05 19:37 | NUR ---
RECIEVED CHANGE OF SHIFT REPORT FROM BALBINA COTA. PATIENT AMBULATED TO RESTROOM SBA WITH ASSISTANCE FROM BALBINA COTA. BED ALARM ON FOR SAFETY. WHITE BOARD UPATED. NO MORE NEEDS AT THIS TIME.
--- NOTE | 2018-10-05 20:54 | NUR ---
ASSESSMENT COMPLETE. MEDICATION ADMINISTRATION COMPLETE PER ORDER. INTAKE AND OUTPUT ASSESSED AND RECORDED. WARM BLANKET PROVIDED TO PATIENT PER PATIENT REQUEST. VITALS ASSESSED. FOOD TRAY LEFT AT BEDSIDE PER PATIENT REQUEST. RESPIRATORY THERAPIST IN ROOM TO ASSESS PATIENT. CALL LIGHT WITHIN REACH. NO MORE NEEDS AT THIS TIME. NO NICODERM PATCH PRESENT DURING ASSESSMENT. IV ASSESSED ON RIGHT FIERRO, PATENT, NO PAIN OR REDNESS AT IV SITE.
--- NOTE | 2018-10-05 22:58 | NUR ---
ROUNDED ON PATIENT RESTING AWAKE IN BED. FOOD TRAY REMOVED TO ROOM. FRESH WATER BROUGHT TO PATIENT. IT WAS NOTED PATIENT OUT OF BED ON OWN TO USE RESTROOM, EDUCATION PROVIDED TO PATIENT ABOUT IMPORTANCE OF USING CALL LIGHT TO USE RESTROOM, CALL LIGHT WITHIN REACH, BED ALARM ON FOR SAFETY. NO MORE NEEDS AT THIS TIME.
--- NOTE | 2018-10-06 01:05 | NUR ---
ROUNDED ON PATIENT RESTING IN BED WITH EYES CLOSED. RESPIRATORY RATE, EVEN AND UNLABORED. POSSESSIONS AT BEDSIDE. CALL LIGHT WITHIN REACH. BED ALARM ON FOR SAFETLY.
--- NOTE | 2018-10-06 03:15 | NUR ---
ASSESSMENT COMPLETE. PATIENT DENIES PAIN. PATIENT DENIES SOB, DIFFICULTY BREATHING, OR CHEST PAIN. REDNESS NOTED IN PERIAREA, CREAM PROVIDED, GLOVE PROVIDED TO PATIENT TO APPLY CREAM TO SELF PER PATIENT REQUEST. COMMUNICATIONS TOWER TECHNICIAN IN ROOM BRUSHING PATIENT HAIR AND TO EMPTY URINAL. IV IN RIGHT FIERRO ASSESSED, PATENT, PATIENT DENIES PAIN, NO SWELLING OR REDNESS NOTED. BED ALARM ON FOR SAFETY. CALL LIGHT WITHIN REACH. NO MORE NEEDS AT THIS TIME.
--- NOTE | 2018-10-06 05:21 | NUR ---
ROUNDED ON PATIENT RESTING IN BED WITH EYES CLOSED. RESPIRATORY RATE IS EVEN AND UNLABORED. RR: 16. CALL LIGHT WITHIN REACH.
--- NOTE | 2018-10-06 05:48 | NUR ---
REGULAR DIET. WORKING WITH PT/ST. BED ALARM ON FOR SAFETLY. PATIENT HAS SPLINT FOR RIGHT WRIST AT BEDSIDE. 1PA. SALINE LOCKED. ROOM AIR.
--- NOTE | 2018-10-06 06:39 | NUR ---
ROUNDED ON PATIENT RESTING IN BED. VITALS ASSESSED AND RECORDED. INTAKE AND OUTPUT RECORDED. BED ALARM ON FOR SAFETY. POSSESSIONS AT BEDSIDE. FRESH WATER BROUGHT TO PATIENT. CALL LIGHT WITHIN REACH. NO MORE NEEDS AT THIS TIME.
--- NOTE | 2018-10-06 09:00 | NUR ---
PT SAT UP AT EDGE OF BED TO EAT BREAKFAST AND IS NOW REQUESTING TO LIE DOWN TO "TAKE A REST". PT ALERT AND ORIENTED THIS AM, APPROPRIATE. DENIES PAIN, NAUSEA, OR SOB. BROUGHT UP CONCERNS ABOUT DISCHARGE AND HIS DOG. IV TO RIGHT LOWER LEG REMAINS PATENT. CALL LIGHT WITHIN REACH. BED ALARM ON.
--- NOTE | 2018-10-06 11:15 | NUR ---
PT SITTING AT EDGE OF BED. DENIES NEEDS OR CONCERNS AT THIS TIME. CALL LIGHT WITHIN REACH.
--- NOTE | 2018-10-06 11:36 | NUR ---
STAFF ALERTED ME THAT PATIENT HAS BEEN TALKING ON THE PHONE WITH SOMEONE AND SAYS HIS RIDE IS COMING THIS AFTERNOON TO TAKE HIM HOME. I SPOKE WITH PATIENT IN ROOM. HE STATES HE IS GOING HOME FOR A FEW DAYS AND CHECKING ON HIS DOG. PATIENT IS ORIENTED. WE DISCUSSED THAT HE IS SCHEDULED TO GO TO REHAB AT [facility] TODAY, NOT DISCHARGE HOME. I DISCUSSED THAT HE IS STILL WEAK, AND IS AT RISK FOR FALLING OR NOT BEING ABLE TO CARE FOR HIMSELF AT HOME STILL. PATIENT BECAME ARGUMENTATIVE. STATES IF HE NEEDS IT, HE CAN HEAD INTO REHAB CENTER ON THE BUS. I EXPLAINED THE ORDERS HAVE TO BE WRITTEN TO BE ADMITTED THERE, EXPLAINED THAT WE FEEL HE IS WEAK AND NEEDS TO GO STRAIGHT THERE. PATIENT STILL STATING HE UNDERSTANDS BUT HE HAS THINGS TO DO. STATES "I'VE GOT A FEW DAYS WORK TO DO BEFORE I CAN THINK ABOUT THIS". I ASKED IF HE IS REFUSING TO GO TO REHAB TO STAY FOR A FEW WEEKS FOR THERAPY. HE STATES HE "NEEDS TO GET STUFF DONE AT HOME". WE DISCUSSED ALTERNATE PLAN, SUCH OUTPATIENT THERAPY AT LEAST, HE STATES HE WILL "GO TO THE [facility]" AND THIS MEANING [facility] OUTPATIENT REHAB AT [facility]. I TOLD HIM I WILL LET DR HENRIQUEZ KNOW HIS REQUEST TO DO THIS INSTEAD OF INPATIENT REHAB. I DISCUSSED THAT HE NEEDS A PCP TO HAVE SOMEONE FOLLOW THE PROBABLE CANCER AND FOR HIS FURTHER MEDICAL NEEDS. GAVE HIM THE NAMES OF THREE CLINICS IN [place], HE WISHES TO GO TO THE "CLINIC HERE AT THE [facility]". I DISCUSSED THAT I WILL HAVE FOLLOW UP APPOINTMENT MADE THERE, AND THEN HAVE [facility] HELP FIND HIM A PCP. HE STATES UNDERSTANDING. AGAIN I WENT OVER WITH HIM THAT HE IS VERY WEAK AND NEEDS TO BE CAREFUL ABOUT FALLING. PATIENT HAS BEEN USING A WALKER HERE, DENIES HAVING ONE. STATES HIS FRIEND "RADHA" HAS SOME AND HE WILL CALL HIM TO BORROW ONE. DISCUSSED [facility] WILL LOAN ONE, TOO OR WE CAN SEE IF INSURANCE WILL COVER ONE FOR HIM. HE STATES HE IS CALLING "RADHA". UPDATED DR HENRIQUEZ AND HIS STAFF NURSE.
--- NOTE | 2018-10-06 11:52 | NUR ---
PT UP AMBULATING IN [place] WITH Jose. I COULD HERE THAT HE WAS SAYING HE NEEDED TO SIT DOWN, BROUGHT CHAIR OUT OF OFFICE TO ALLOW PT TO REST. HE THANKED ME AND GAVE ENCOURAGEMENT. PT CONTINUED TO TALK, OFTEN NOT REALLY MAKING SENSE BUT TO HIM. EXTENDED A BLESSING, WILL FOLLOW NEEDED
[2018-10-06] MEDS ORDERED: NICOTINE PATCH1 EAC1 TD (12:38)
[2018-10-06] MEDS ORDERED: METOPROLOL SUC100 MG PO (12:39)
[2018-10-06] MEDS ORDERED: ASPIRIN325 MG PO (12:40)
[2018-10-06] MEDS ORDERED: LISINOPRIL20 MG PO (12:40)
--- NOTE | 2018-10-06 13:36 | NUR ---
FAXED CHART NOTES TO [facility] INCLUDING FACE SHEET, H AND P, DC SUMMARY, PT EVAL AND NOTES AND THE ORDER FOR PT. RECIEVED FAX CONFIRMATION.
--- NOTE | 2018-10-06 13:55 | NUR ---
DISCUSSED WITH PT ABOUT A WALKER, PT STATES HE DOES NOT NEED ONE FROM HERE HE IS GETTING ONE FROM THE [facility] THEY HAVE A BUNCH OF THEM STOR[facility] [place] [facility] AND HE WOULD JUST GET ONE OF THOSE--THEN I'LL HAVE ONE WHEN I NEED IT. AGAIN OFFERED TO ORDER ONE THROUGH ONE OF THE DME'S AND HE SAID NO, I EXPLAINED THE INSURANCE WOULD COVER THE COST AND PT AGAIN REFUSED AND SAID HE WOULD GET ONE FROM THE [facility] [place] [facility]. THEN PT STATED THAT HE HAD A FRIEND SHOWING UP SHORTLY TO TAKE HIM HOME. AGAIN MADE OFFER OF REHAB, PT REFUSED TO GO TO A FACILITY BUT DID STATE HE WOULD GO TO OP PT. WHICH I STATED I HAD SENT THE PAPERWORK OFF FOR THAT.
[2018-10-09] MEDS ORDERED: ASPIR-LOW81 MG PO (14:28)
[2018-11-06] MEDS ORDERED: AUGMENTIN 875-1 EACH PO (13:43)
== END 2018-10-06 14:55 | disposition home or self-care (01) | DRG 308 ==
LOC: ED 09:50 → CCU 09:52 → MS 10-02 19:30
PROVIDERS: ADMIT Internal Medicine
PROC: 5A09557 Assistance with Respiratory Ventilation, Greater than 96 Consecutive Hours, Continuous Positive Airway Pressure (ICD-10-PCS; principal; 2018-09-28)
DX: I48.0 Paroxysmal atrial fibrillation (principal); J13 Pneumonia due to Streptococcus pneumoniae; G92 Toxic encephalopathy; S52.91XA Unspecified fracture of right forearm, initial encounter for closed fracture; F10.231 Alcohol dependence with withdrawal delirium; C78.00 Secondary malignant neoplasm of unspecified lung; E87.1 Hypo-osmolality and hyponatremia; Z79.01 Long term (current) use of anticoagulants; R53.81 Other malaise; I10 Essential (primary) hypertension; F17.210 Nicotine dependence, cigarettes, uncomplicated
CPT/HCPCS: 31720; 36415; 36600; 51700; 51798; 70470; 71045; 71046; 71260; 73110; 74177; 80048; 80053; 82140; 82533; 82550; 82607; 82746; 82803; 83735; 83880; 84100; 84439; 84443; 84484; 85025; 85610; 92610; 93005; 93010; 93306; 93971; 94640; 94660; 96374; 96375; 97110; 97116; 97163; 97530; 99285-25; 99406; J0456; J0696; J1200; J1650; J1885; J2060; J2270; J2560; J3360; J3411; J3475; J3480; J7042; J7060; J7120; Q2009; Q9967

== ENCOUNTER 2018-11-27 19:50 | Observation (INO) | payer OTHER ==
[~2018-11-27] VITALS: Ht 180.3 cm; Wt 54.4 kg
[~2018-11-27 19:50] MED LIST: ASPIR-LOW81 MG PO; ASPIRIN325 MG PO; AUGMENTIN 875-1 EACH PO; LISINOPRIL20 MG PO; METOPROLOL SUC100 MG PO; NICOTINE PATCH1 EAC1 TD
--- NOTE | 2018-11-27 20:59 | EKG ---
[facility] [address] [place] [address] Signed Sinus rhythm with premature supraventricular complexes Possible Left atrial enlargement Nonspecific ST abnormality Abnormal ECG When compared with ECG of 26-SEP-2018 02:27, Previous ECG has undetermined rhythm, needs review ST elevation now present in Inferior leads ST no longer depressed in Lateral leads T wave inversion no longer evident in Inferior leads T wave inversion less evident in Anterolateral leads Confirmed by LAILA ARIZA MD ([id number]) on 11/27/2018 8:59:10 PM Electronically Signed By: LAILA ARIZA MD 11/27/[id number] PATIENT NAME: LOVE LOZANO Electrocardiogram DATE OF : 62 PHYSICIAN: LAILA ARIZA MD REPORT #: [id number] REPORT IS CONFIDENTIAL AND NOT TO BE RELEASED WITHOUT AUTHORIZATION
[2018-11-27] MEDS ORDERED: PERCOCET 5-3251 EACH PO (21:58)
[2018-11-27] MEDS ORDERED: LIPITOR20 MG (21:59)
--- NOTE | 2018-11-27 22:35 | NUR ---
PT ARRIVED TO THE FLOOR ACCOMPANIED BY MAC COTA, PT ABLE TO MOVE SELF FROM STRETCHER TO BED VERY SLOWLY, PT DESCRIBES WEAKNESS EFFECTING ALL EXTREMITIES ACCOMPANIED BY NUMBNESS AND TINGLING. PT'S VSS. AFEBRILE, O2 SAT 98% ON RA, PT DENIES SOB/CP, PT C/O / PAIN "ACROSS MY BACK" FOCAL POINT, PT CONTINUES TO DESCRIBE "EVERYTHING HURTS". PT AOX4, FOLLOWS COMMANDS, PERRLA, PT'S LS CLEAR, LEFT LOWER LOBE DIMINISHED, PT HAS A BANDAGE ON LEFT CHEST WALL FROM PREVIOUS LUNG BIOPSY RELATED TO RECENT DIAGNOSIS OF METASTATIC LUNG CANCER. PT GIVEN WARM BLANKETS FOR COMFORT, PT COOL, PT'S SKIN IN DIRTY, AND REPORTEDLY WAS COVERED IN FECES PRIOR TO CLEANING IN THE ER. PT ORIENTED TO ROOM, WELL CALL LIGHT. PT AGREEABLE TO POC. NO FURTHER REQUESTS AT THIS TIME, CALL LIGHT WITHIN REACH. FALL PRECAUTIONS IN PLACE. BED ALARM ON.
--- NOTE | 2018-11-27 23:35 | NUR ---
IN ROOM TO ADMIN SCHEDULED MEDS, PT'S BP NOTED TO BE 87/51, BP RECHECKED MANUALLY, MANUAL BP 78/48, DR. ARIZA NOTIFIED, DR. ARIZA INSTRUCTED THIS RN TO WITH HOLD THE SCHEDULED METOPROLOL, NO FURTHER ORDERS AT THIS TIME, DR. ARIZA INSTRUCTED TO CONTINUE WITH ORDERED PAIN MANAGEMENT WELL. TORB.
--- NOTE | 2018-11-28 00:07 | NUR ---
PT GIVEN PRN PAIN MEDICATION PER EMAR FOR PAIN OF 6/10, PT TOLERATED WELL. NO FURTHER REQUESTS AT THIS TIME, CALL LIGHT WITHIN REACH. FALL PRECAUTIONS IN PLACE. BED ALARM ON.
--- NOTE | 2018-11-28 00:47 | NUR ---
PT RESTING IN BED WATCHING TV, ON RA, NO SIGNS OF DISTRESS, PT DENIES ANY PAIN AT THIS TIME, STATING "I JUST WOKE UP", NO REQUESTS AT THIS TIME, CALL LIGHT WITHIN REACH. FALL PRECAUTIONS IN PLACE. BED ALARM ON.
--- NOTE | 2018-11-28 01:52 | NUR ---
PT HEARD TO BE GRUNTING AT NURSES STATION. IN PT'S ROOM, PT AWAKE, STATES THAT HE WAS JUST TURNING HIMSELF IN BED. PT DENIES ANY SIGNIFICANT PAIN AT THIS TIME, PT OFFERED PAIN MEDICATION AND DENIES NEED STATING "I WILL LET YOU KNOW IF I NEED IT". NO FURTHER REQUESTS AT THIS TIME, CALL LIGHT WITHIN REACH. FALL PRECAUTIONS IN PLACE. BED ALARM ON.
--- NOTE | 2018-11-28 02:48 | NUR ---
PT RESTING IN BED, MOANING. PT DENIES PAIN. STATES "I DON'T FEEL BAD". PT CONTINUES TO MUMBLE, "I DON'T KNOW NUMBERS". PT STATES THAT HE NEEDS TO VOID. PT ASSISTED TO USE THE URINAL. URINE NONI IN COLOR AND SLIGHTLY ODOROUS. PT DENIES FURTHER NEEDS AT THIS TIME. CALL LIGHT WITHIN REACH.
--- NOTE | 2018-11-28 03:47 | NUR ---
PT RESTING IN BED WATCHING TV. NO REQUESTS AT THIS TIME, PT CONTINUES TO DENY PAIN, DENIES NEED FOR PRN PAIN MEDICATION. CALL LIGHT WITHIN REACH. FALL PRECAUTIONS IN PLACE.
--- NOTE | 2018-11-28 05:18 | NUR ---
IN ROOM TO ASSESS PT'S PAIN, WHEN ASKED IF THE PT IS IN PAIN THE PT STATES "IT AINT NOTHIN, WHY DON'T YOU COME BACK AT 6", PT CONTINUED TO DENY NEED FOR PRN PAIN MEDICATION. NO REQUESTS AT THIS TIME, REPOSITIONED IN BED FOR COMFORT, CALL LIGHT WITHIN REACH, ICE WATER AT BEDSIDE. BED ALARM ON.
--- NOTE | 2018-11-28 05:31 | NUR ---
PT SLEPT ON AND OFF THIS SHIFT, PT NOT COMMUNICATING VERBALLY MOSTLY THIS SHIFT EXCEPT FOR OCCASIONAL ONE WORD RESPONSES, MOSTLY NODDING OR SHAKING HEAD IN RESPONSE TO QUESTIONS. PT REFUSED HER EVENING MEDS EARLY IN THE SHIFT PER CIPRIANO LOPEZ, PT WAS ABLE TO BE GIVEN PRN PAIN MEDICATION X1 THIS SHIFT LATER IN THE EVENING. TOLERATES PILLS WITH APPLESAUCE/PUDDING WELL. PT ATE AN ENTIRE APPLE SAUCE AND AN ENTIRE PUDDING WITH ASSISTANCE. PT'S LEFT LEG CAST INTACT, LINE DRAWN ON LEFT LEG RELATED TO REDNESS HAS NOT HAD ANY INCREASE IN REDNESS OR WARMTH, PT TURNED Q2, VSS, AFEBRILE, IV SL, INCONTINENT OF STOOL X1 THIS SHIFT, LEGS ELEVATED WITH PILLOWS BILATERALLY PER ORDER. BED ALARM ON.
--- NOTE | 2018-11-28 05:38 | NUR ---
PT AOX4 THIS SHIFT, APPROPRIATE, SLEPT MOST OF THE NIGHT. PT RECEIVED PRN PAIN MEDICATION X1 THIS SHIFT, PT HAS DENIED PAIN SINCE PAIN MEDICATION ADMINISTRATION. PT WEAK IN BED, ABLE TO REPOSITION SELF, BUT WOULD CONSIDER AT LEAST A 2 PERSON ASSIST TO GET PT UP TO CHAIR PER ER REPORT. VSS, ON RA. IV SL. PT HAS POOR DENTITION AND DIFFICULTY SWALLOWING, RAISE HOB WITH EATING/DRINKING. BED ALARM ON.
--- NOTE | 2018-11-28 07:43 | NUR ---
RECIEVED BEDSIDE REPORT FROM CIPRIANO EDEN. PT AWAKE, MOANING AND WRITHING IN PAIN/DISCOMFORT. 10MG MORPHINE GIVEN SUBLINGUALLY. PT ORDERED BREAKFAST.
--- NOTE | 2018-11-28 08:27 | NUR ---
PT SLEEPING, BREATHING EVEN AND UNLABORED.
--- NOTE | 2018-11-28 10:19 | NUR ---
PT RESTING MORE COMFORTABLY. FAMILY AT BEDSIDE.
--- NOTE | 2018-11-28 14:33 | NUR ---
FRIENDS OF PATIENT IN ROOM, THEY INDICATED THAT PATIENT'S NEPHEW IS BRINGING BACK HIS SPOUSE (NURSE) SO THEY CAN ALL DISCUSS PLANS FOR PATIENT. FAMILY IS TO LET NURSING STAFF KNOW WHEN THEY ARE ASSEMBLED AND WE WILL CALL DR. ARIZA.
--- NOTE | 2018-11-28 15:37 | NUR ---
FAMILY WAS IN ROOM, THIS GRIEF COUNSELOR PUT A SHOWER CAP ON PATIENTS HEAD, FAMILY USED A BRUSH TO BRUSH OUT PATIENTS HAIR, OFFERED BED BATH, PATIENT REFUSED.
--- NOTE | 2018-11-28 15:47 | NUR ---
PT'S FAMILY STATED HE WAS READY FOR MORE PAIN MEDS. PT WAS AWAKE AND ABLE TO FOLLOW SIMPLE DIRECTIONS. PT WAS RESTLESS AND MOANING. 15MG MORPHINE GIVEN. PT WAS ABLE TO OPEN HIS MOUTH AND TAKE MEDICATION. PT STATED HE DID NOT NEED ANYTHING ELSE AT THIS TIME.
--- NOTE | 2018-11-28 16:47 | NUR ---
SPOKE WITH CIPRIANO CHEN WITH [facility]. THEIR SERVICE HAS BEEN CONTACTED BY DR SORIANO LAST WEEK AND PT REFUSED ALL TREATMENT. THIS RN EXPLAINED PT WAS WILLING TO HAVE HOSPICE SERVICES AT THIS TIME. CIPRIANO CHEN WAS UNAWARE OF THIS CHANGE, THIS RN EXPLAINED IT JUST HAPPENED AND FAMILY, PT, AND PROVIDER WERE IN AGREEMENT. GUSTAVO COTA, EXPLAINED THAT PT COULD NOT BE ACCEPTED INTO THIR SERVICE THIS WEEKEND, FRIDAY WOULD BE THE EARLIEST. THE FAMILY IS PLANNING ON TAKING PT HOME ON FRIDAY MORNING AND WILL TRANSPORT. POLST, FACE SHEET, HOSPICE CONSULT ORDER, AND CODE STATUS ORDER FAXED TO [facility].
--- NOTE | 2018-11-28 18:03 | NUR ---
PT'S PAIN WELL CONTROLLED WITH AVAILABLE MORPHINE SCHEDULE. PT AND FAMILY DISCUSSED PLAN FOR DISCHARGE. PT AGREED TO HOSPICE CARE AND INDICATED SUCH ON POLST. POLST, FACE SHEET, AND ORDERS FAXED TO [facility]. PLAN TO DISCHARGE TO NEPHEW'S HOME IN [place] ON FRIDAY. COMFORT CARE.
--- NOTE | 2018-11-28 19:10 | NUR ---
SHIFT REPORT RECEIVED. PATIENT RESTING IN BED. EYE CLOSED. APPEARS COMFORTABLE. RR 10, NONLABORED.
--- NOTE | 2018-11-28 19:53 | NUR ---
SIDE STAPLER ROUNDING NOTE. PT RESTING IN BED WITH EYES CLOSED. PT DOES NOT WAKE WHILE CHEMICALS FERMENTATION OPERATOR IN ROOM. RR 12 WITH LONG PERIODS BETWEEN BREATHS. NO S/SX OF DISTRESS PRESENT. CALL LIGHT IN REACH.
--- NOTE | 2018-11-28 20:00 | NUR ---
PATIENT APPEARS COMFORTABLE. RR 12, NONLABORED. PATIENT DOES NOT WAKE TO VOICE. ALLOWED TO REST. CALL LIGHT IN REACH.
--- NOTE | 2018-11-28 21:30 | NUR ---
PATIENT RESTING IN BED. APPEARS COMFORTABLE. RR 12 AND IRREGULAR. PATIENT WOKE BREIFLY. WHEN ASKED IF HE WAS DOING OKAY, PATIENT STATED "I DON'T KNOW" AND THEN CLOSED HIS EYES. ALLOWED PATIENT TO REST.
--- NOTE | 2018-11-28 22:00 | NUR ---
PATIENTS IS HYPOTENSIVE, SCHEDULED MEDS HELD. PATIENT DENIES NEED FOR PRN MAIN MEDS. APPEARS VERY DROSWY, UNABLE TO IN MORE THAN ONE WORD ANSWERS. REPOSITONED PATIENT FOR COMFORT. OFFERED MOUTH SWABS, WHICH PATIENT REFUSED. CALL LIGHT IN REACH. ALLOWED PATIENT TO REST.
--- NOTE | 2018-11-29 | NUR ---
PATIENT INCONTINENT OF URINE. ZEINAB GARCIA AND LUCILA ASSISTED IN CHANGING PATIENT'S ATTENDS AND LINENS. PATIENT TOLERATED WELL.
--- NOTE | 2018-11-29 02:00 | NUR ---
PATIENT CALLS OUT OCCATIONALLY. WHEN RN ENTERED ROOM AND ASKED PATIENT IF HE NEEDED ASSISTANCE HE STATED "NO". ATTEMPTS TO PROVIDED ORAL CARE OR REPOSITIONING ARE MET WITH MOANING AND PATIENT SWINGING ARMS AT THE NURSE WEAKLY. LEFT PATIENT TO REST.
--- NOTE | 2018-11-29 03:56 | NUR ---
PATIENT CALLING OUT AND MOAING LOUDLY. PRN MORPHINE AND ATIVAN PROVIDED PER ORDER. PATIENT REPOSITIONED. PATIENT REFUSED TO ALLOW ORAL CARE AT THIS TIME. ENCOURAGED SIPS OF WATER, PATIENT REFUSED. ALLOWED PATIENT TO REST.
--- NOTE | 2018-11-29 05:08 | NUR ---
CHECKED PATIENT ATTENDS, PATIENT IS DRY.
--- NOTE | 2018-11-29 06:13 | NUR ---
PATIENT PROVIDED WITH PRN ATIVAN X1 AND PRN MORPHINE X2. PATIENT HAS BEEN VERY DROWSEY THIS SHIFT BUT OCCATIONALLY CALLS OUT IN DISCOMFORT. PATIENT HAS NOT ALLOWED STAFF TO PROVIDED ORAL CARE. PATIENT INCONTINENT X1 WITH NO ORAL INTAKE. REPOSITION PATIENT FOR COMFORT. PATIENT HAS NOT BEEN OUT OF BED.
--- NOTE | 2018-11-29 07:15 | NUR ---
RECIEVED BEDSIDE REPORT FROM CIPRIANO LARKIN. PT RESTING, BUT IS CALLING OUT IN HIS SLEEP.
--- NOTE | 2018-11-29 10:27 | NUR ---
PT RESTING APPEARS COMFORTABLE. WHEN ASKED IF HE WAS IN PAIN, HE DID NOT RESPOND.
--- NOTE | 2018-11-29 13:50 | NUR ---
PT'S FRIENDS REQUESTED THIS RN TO TAKE PT'S BLOOD PRESSURE. RN EXPLAINED THAT AT THIS POINT, BLOOD PRESSURES ARE NOT INDICATED. RN EXPLAINED PT'S CONDITION.
--- NOTE | 2018-11-29 14:14 | NUR ---
PT PASSED AT 1408, PRONOUNCED BY DR ARIZA. PASTORAL CARE NOTIFIED BY ZEINAB WATERS. FREDY WILL BE IN. JENNY, RN CHEMICAL PUMPER HAS HOME PAPERWORK.
--- NOTE | 2018-11-29 15:35 | NUR ---
NAKUL FROM [facility] NOTIFIED OF PT PASSING
--- NOTE | 2018-11-29 16:46 | NUR ---
PT LEFT VIA STRETCHER WITH [place] [facility] AND JUANITA DANIEL WALKING WITH THEM. FAMILY STAYED IN THE ROOM UNTIL THE BODY WAS REMOVED.
--- NOTE | 2018-12-03 12:56 | NUR ---
I WAS CALLED IN AT 14;15 AND ARRIVED SHORTLY AFTER. I CHECKED IN WITH PT'S NANDA AND MARYA BROWN. PTS FRIENDS, THOSE LISTED ON WHO TO CALL FOR PT, WHERE IN THE ROOM. I OFFERED PRAYER AND COMFORTED THEM. WE WERE ABLE TO GET PTS RELATIVE INFO FROM THEM. PTS NEPHEW WAS CONTACTED BY [facility] STAFF AND BY PTS FRIENDS. AT PTS FRIENDS REQUEST I CONTACTED THE HOME [place], [place]. PT WAS A VET SO FLAG WAS PLACED OVER THE BODY. A PRAYER BELLO WAS GIVEN TO THE GRIEVING FRIENDS.
== END 2018-11-29 14:08 ==
LOC: ED 19:50 → MS 19:51
PROVIDERS: ADMIT Internal Medicine
DX: G89.3 Neoplasm related pain (acute) (chronic) (principal); R06.00 Dyspnea, unspecified; Z51.5 Encounter for palliative care; C34.90 Malignant neoplasm of unspecified part of unspecified bronchus or lung; C78.7 Secondary malignant neoplasm of liver and intrahepatic bile duct; C79.51 Secondary malignant neoplasm of bone; R32 Unspecified urinary incontinence; F17.200 Nicotine dependence, unspecified, uncomplicated; F10.20 Alcohol dependence, uncomplicated; I48.92 Unspecified atrial flutter; R11.2 Nausea with vomiting, unspecified; Z79.899 Other long term (current) drug therapy; Z66 Do not resuscitate
CPT/HCPCS: 80053; 85025; 93005; 93010; 99285-25; G0378